=== PATIENT | male | born 1935 | race Caucasian/White ===

== ENCOUNTER 2016-03-02 05:08 | Inpatient (IN) | payer OTHER ==
--- NOTE | 2016-02-22 09:58 | HISTORY & PHYSICAL EXAMINATION ---
DATE OF ADMISSION: 02/22/2016 ATTENDING: Dr. Fagan. DATE OF SURGERY: 03/02/2016 PROCEDURE: Left knee replacement. HISTORY OF PRESENT ILLNESS: The patient is a pleasant 80-year-old male who presents for preop evaluation prior to left knee replacement. he states he is having pain in this knee for several years now, which has gradually worsened, has not gotten to the point it is affecting his daily activities including walking, standing, going up and down steps. He has had previous knee arthroscopy and subchondroplasty by Dr. Collier, has tried cortisone injections x3 without relief. X-rays were obtained which revealed end-stage DJD and after discussing further care would like to proceed with a left knee replacement. PAST MEDICAL HISTORY: 1. Hypertension. 2. Asthma. 3. History of kidney stones. 4. History of prostate cancer. ALLERGIES: No known drug allergies. CURRENT MEDICATIONS: 1. Diltiazem 300 mg p.o. daily. 2. Econazole. 3. Flovent. 4. Losartan/HCTZ 100/25 mg daily. PAST SURGICAL HISTORY: 1. Tonsillectomy. 2. Cholecystectomy. 3. Left knee arthroscopy. FAMILY HISTORY: Noncontributory. SOCIAL HISTORY: The patient is . His resides at [facility], has dementia. He denies a history of smoking or tobacco use. REVIEW OF SYSTEMS: Otherwise negative. Please see HPI for pertinent positives. PHYSICAL EXAMINATION: GENERAL: Pleasant male, in no acute distress, alert and oriented x3. He is 5 feet 10 inches, weighs 234 pounds. VITAL SIGNS: Blood pressure 140/80, pulse 92, BMI is 33.5. HEENT: Normocephalic, atraumatic. CARDIAC: Regular rate and rhythm. No murmurs or gallops appreciated. Resting pulse 92 beats per minute. LUNGS: Clear to auscultation without rales or wheeze bilaterally. ABDOMEN: Soft, nontender. Bowel sounds present. EXTREMITIES: Left lower extremity is neurovascularly intact. Calves are soft and nontender. DP pulse +2. Demonstrates good quad tone. Straight leg raise without lag. No erythema or warmth, has mild effusion. Positive crepitation with motion, range of motion is 0/5/110. Overall has varus alignment. IMAGING: Reviewed of the left knee shows findings consistent with end-stage DJD, has complete loss of medial compartment with varus alignment. He is also status post subchondroplasty of the medial tibial plateau noted, has endstage DJD of the patellofemoral joint. IMPRESSION: 1. Left knee degenerative joint disease. 2. Hypertension. 3. Asthma. 4. History of prostate cancer. PLAN: Further care discussed with patient. At this point in time, has failed conservative measures. Will proceed with a left knee replacement. Will place on aspirin 81 mg p.o. b.i.d. for a month postop, given his living situation at home, would like to discuss with family preservation caseworker for possible rehab placement.
[2016-02-22 10:42] VITALS: BMI 32.0
--- NOTE | 2016-02-22 11:24 | PAT Medication Instructions ---
Service Date Feb 22, 2016. Current Home Medication List Brimonidine Tartrate (Brimonidine Tartrate), 2 DROPS OPL BID Diltiazem Hcl Coated Beads (Cardizem Cd), 300 MG PO QAM Dorzolamide Hcl Oph (Trusopt Oph), 2 DROPS OPL BID Econazole Nitrate (Econazole Nitrate Crm 1% 30 Gm), 1 DOSE TOP UD PRN for PRN Fluocinonide (Fluocinonide), 1 DOSE TOP BID PRN for RASH Fluticasone Propionate Hfa (Flovent Hfa 220MCG Inhaler), 2 PUFFS INH QAM Losartan Potassium & Hydrochlo (Hyzaar), 1 TAB PO QAM Medication Instructions For Your Scheduled Surgery - Hold the following medications the morning of surgery: Losartan Potassium & Hydrochlo (Hyzaar), 1 TAB PO QAM Econazole Nitrate (Econazole Nitrate Crm 1% 30 Gm), 1 DOSE TOP UD PRN for PRN Fluocinonide (Fluocinonide), 1 DOSE TOP BID PRN for RASH - Take the following medications the morning of surgery with a sip of water OTHERWISE NOTHING TO EAT OR DRINK AFTER MIDNIGHT: Dorzolamide Hcl Oph (Trusopt Oph), 2 DROPS OPL BID Brimonidine Tartrate (Brimonidine Tartrate), 2 DROPS OPL BID Diltiazem Hcl Coated Beads (Cardizem Cd), 300 MG PO QAM Fluticasone Propionate Hfa (Flovent Hfa 220MCG Inhaler), 2 PUFFS INH QAM - Take the following medications as scheduled the night before surgery: Dorzolamide Hcl Oph (Trusopt Oph), 2 DROPS OPL BID Brimonidine Tartrate (Brimonidine Tartrate), 2 DROPS OPL BID Fluocinonide (Fluocinonide), 1 DOSE TOP BID PRN for RASH If you have any questions please call us at [phone] (Abigail Stein PA-C ) or [phone] or [phone]
[2016-02-22 12:03] LABS: BASO % 0.3 %; BASO ABS # 0.04 K/uL (0-0.2); COMPLETE YES; HEMATOCRIT 48.7 % (42-52); IG% 1.3 %; LYMPH % 14.1 %; MEAN CELL VOLUME 88.7 fL (80-100); MEAN CORPUSCULAR HEMOGLOBIN 30.1 pg (25-34); MEAN CORPUSCULAR HGB CONC 33.9 g/dl (32-36); MONO % 10.2 %; NEUT % 74.1 %; PLATELET COUNT 373 K/uL (130-400); RED BLOOD COUNT 5.49 M/uL (4.7-6.1); WHITE BLOOD COUNT 12.77 K/uL (4.8-10.8)
--- NOTE | 2016-02-22 12:05 | DIAGNOSTIC IMAGING REPORT ---
CHEST PREADMISSION(PA/LAT) CLINICAL HISTORY: Preoperative evaluation. COMPARISON STUDY: Chest radiograph November 03, 2014 and FINDINGS: Lung volumes are normal. No consolidation is identified to suggest pneumonia. There is no evidence of pulmonary edema. Linear left lower lung opacity favors atelectasis. This is unchanged. There is borderline cardiomegaly. IMPRESSION: 1. No acute cardiopulmonary findings. 2. Borderline cardiomegaly without evidence of pulmonary edema. 3. Linear left lower lung opacity suggestive of atelectasis. Electronically signed by: Josh Shepard M.D. 02/22/2016 12:03 PM Dictated Date/Time: 02/22/2016 12:02 PM
[2016-02-22 12:17] LABS: PARTIAL THROMBOPLASTIN RATIO 0.9; PROTHROMBIN TIME (PATIENT) 10.9 SECONDS (9.0-12.0)
[2016-02-22 12:24] LABS: ESTIMATED AVERAGE GLUCOSE 143 mg/dl; HA1C FLAG Normal (Normal)
[2016-02-22 12:28] LABS: BUN/CREATININE RATIO 21.3 (10-20); CREATININE 1.3 mg/dl (0.60-1.40); POTASSIUM 3.4 mmol/L (3.5-5.1)
[~2016-03-02] VITALS: Ht 182.9 cm; Wt 106.0 kg
[2016-03-02] VITALS (12 sets, daily range): BP systolic 121–178; BP diastolic 75–105; PULSE 59–75; TEMP 36.5–37; O2SAT 91–96; Ht 182.9 cm; Wt 106.0 kg
[~2016-03-02 05:08] MED LIST: DILT300C29 PO; DORZ1SOL OPL; FLUT220A INH; LOSA100T2 PO; SPCCR30 TOP; [UNRECOGNIZED DRUG - CODE] OPL; [UNRECOGNIZED DRUG - CODE] TOP
[2016-03-02] MEDS ORDERED: GABAPENTIN 300 MG CAP PO SCH (06:00)
[2016-03-02] MEDS ORDERED: FAMOTIDINE 20 MG TAB PO SCH (06:00)
[2016-03-02] MEDS ORDERED: CEFAZOLIN 2000 MG/60 ML D5W 60 ML IV SCH (06:00)
[2016-03-02] MEDS ORDERED: METOCLOPRAMIDE HCL 10 MG TAB PO SCH (06:00)
[2016-03-02] MEDS ORDERED: CeleBREX 200 MG CAP PO SCH (06:00)
[2016-03-02] MEDS ORDERED: ROPIVACAINE 5MG/ML 30 ML 150 MG, BUPIVACAINE/EPINEPHR 0.5% MPF 30 ML, KETOROLAC TROMETH... INFIL SCH ×7 (06:00)
[2016-03-02] MEDS ORDERED: LACTATED RINGER'S 1000ML IV SCH (06:00)
[2016-03-02] MEDS ORDERED: ACETAMINOPHEN 500 MG TAB PO SCH (06:00)
[2016-03-02] MEDS ORDERED: DEXAMETHASONE 4 MG TAB PO SCH (06:00)
[2016-03-02] MEDS ORDERED: LACTATED RINGER'S 500 ML IV SCH (06:00)
[2016-03-02] MEDS ORDERED: BUPIVACAINE 0.5 % 5 MG/1 ML PF 10ML VIAL ONE (06:22)
[2016-03-02] MEDS ORDERED: BUPIVACAINE 0.25% 30 ML VIAL ONE (06:23)
[2016-03-02] MEDS ORDERED: MIDAZOLAM HCL 1 MG/ML 2ML VIAL ONE (06:39)
[2016-03-02] MEDS ORDERED: FENTANYL CITRATE INJ 50 MCG/1 ML 2 ML VIAL ONE (06:39)
[2016-03-02] MEDS ORDERED: ORTHO JOINT ANESTHETIC ONE (06:57)
[2016-03-02] MEDS ORDERED: NURSING VERBAL MED ORDER ONE (07:00)
--- NOTE | 2016-03-02 07:13 | History & Physical Bridge Note ---
H&P Re-Evaluation Bridge Note: I have examined the patient, reviewed the History & Physical and in the interval since the performance of the History & Physical I have noted the following changes of clinical significance: No changes noted
[2016-03-02] MEDS: TRANEXAMIC ACID AMP 1,000 MG in NSS 100ML IV SCH ×2 (07:15→07:30)
[2016-03-02] MEDS ORDERED: ATROPINE SULFATE 0.1 MG/ML 5ML SYR IV PRN (07:30)
[2016-03-02] MEDS ORDERED: EpHEDrine SULFATE INJ 50 MG/ML AMP IV PRN (07:30)
[2016-03-02] MEDS ORDERED: FENTANYL CITRATE INJ 50 MCG/1 ML 2 ML VIAL IV PRN (07:30)
[2016-03-02] MEDS ORDERED: ONDANSETRON INJ 2 MG/ML 2 ML VIAL IV PRN ×2 (07:30→09:30)
[2016-03-02] MEDS ORDERED: PROPOFOL IV EMULSION 10 MG/ML 20 ML VIAL IV ONE (08:11)
--- NOTE | 2016-03-02 08:53 | [facility] Post Operative Brief Note ---
Immediate Operative Summary Operative Date Mar 02, 2016. Pre-Operative Diagnosis Left knee degenerative joint disease Post-Operative Diagnosis Left knee degenerative joint disease Procedure(s) Performed Left Total Knee Arthroplasty Surgeon Dr. Gurinder Fagan Metallurgical Engineer Surgeon(s) Gurvinder Edmond PA-C Estimated Blood Loss 10mL Findings severe djd lt knee Specimens Specimen A. Left knee bone and tissue Complication(s) None Disposition Recovery Room / PACU
[2016-03-02] MEDS ORDERED: BACITRACIN 50000 UNIT VIAL IR ONE ×2 (08:57→09:00)
[2016-03-02] MEDS ORDERED: POVIDONE-IODINE OP SOLN 30 ML BTL TOP ONE ×2 (08:57→09:00)
--- NOTE | 2016-03-02 09:11 | OPERATIVE REPORT ---
DATE OF OPERATION: 03/02/2016 PREOPERATIVE DIAGNOSIS: Severe end-stage degenerative joint disease, left knee. POSTOPERATIVE DIAGNOSIS: Severe end-stage degenerative joint disease, left knee. PROCEDURE: Left total knee arthroplasty utilizing Journey II size 8 femur, 7 tibia with a 22 mm x 100 mm stem, 11 poly, 35 patella. SURGEON: Dr. Fagan. MAINTENANCE ELECTRICIAN: CAREN Reid, who was necessary for prepping, draping, retraction, wound closure of deep fascia, subcu and skin as necessary for the case. COMPLICATIONS: None. ESTIMATED BLOOD LOSS: 10 mL TOURNIQUET TIME: 1 hour. HISTORY: The patient presents as a very pleasant 80-year-old white male who had previously undergone a subchondroplasty by surgeon elsewhere, had failed subchondroplasty with collapse of his medial tibial plateau and ongoing pain, he presents for total knee arthroplasty. He has failed all other attempts at conservative management including physical therapy, viscosupplementation and injections. PROCEDURE IN DETAIL: The patient was properly prepped and draped in supine position for total knee arthroplasty after identifying the appropriate surgical site. An anterior midline incision was made through the subcutaneous tissues down to the region of the extensor mechanism. A medial parapatellar incision was subsequently made. Meticulous hemostasis was obtained and performed at all times. The patella having been subluxed lateralward, medial and lateral meniscal remnants were excised. The patellar cut was then initially made and was sized to the appropriate size. After subluxing the tibia forward the appropriate meniscal fragments having been removed the distal femur was then cut first utilizing a Howard and Nephew block. The distal femoral cuts and chamfer cuts were all made under direct visualization and the proximal tibial osteotomy cut was also made utilizing Howard and Nephew blocks and checked with an extramedullary guide. The appropriate trial components on the femur and tibia were placed. Appropriate trial spacers were used to check flexion and extension gaps. With flexion and extension gaps being equal, the components were then subsequently after thorough irrigation and debridement lavage components were then subsequently cemented in the following order: femur, tibia and patella. Exparel was used for intraoperative anesthesia, the medial parapatellar incision was closed utilizing #1 Vicryl, subQ was closed with 2-0 Vicryl, skin was closed with skin clips. A sterile compression dressing was placed. The patient tolerated the procedure well and was taken to recovery room in stable condition. Due to the complex nature of the procedure, the entire surgery was performed with the operational assistance of CAREN Reid. The assistant speech language pathologist, under direct supervision, was involved in the actual performance of all aspects of the surgical procedure including hemostasis, tissue retraction and incision, instrument management, patient positioning, and wound closure. I attest to the content of the Intraoperative Record and any orders documented therein. Any exceptio ns are noted below.
[2016-03-02] MEDS ORDERED: MoRPHine SULFATE 2 MG/ML CARP IV PRN (09:30)
[2016-03-02] MEDS ORDERED: ALUMINUM/MAGNESIUM/SIMETH (MAALOX MAX) 30 ML UDC PO PRN (09:30)
[2016-03-02] MEDS ORDERED: SOD PHOSPHATE/SOD BIPHOSPHATE ENEMA 132 ML BTL PR PRN (09:30)
[2016-03-02] MEDS ORDERED: BISACODYL 10 MG SUPP PR PRN (09:30)
[2016-03-02] MEDS ORDERED: OXYCODONE HCL IR 5 MG TAB (IMMEDIATE RELEASE) PO PRN (09:30)
[2016-03-02] MEDS ORDERED: KETOROLAC TROMETHAMINE 15 MG/ML VIAL IV. PRN (09:30)
--- NOTE | 2016-03-02 09:58 | DIAGNOSTIC IMAGING REPORT ---
LEFT KNEE 1 OR 2 VIEWS ROUTINE CLINICAL HISTORY: Left knee osteoarthritis. Arthroplasty. COMPARISON: MRI of the left knee November 03, 2014. FINDINGS: Alignment of the total left knee arthroplasty is anatomic. There is no fracture or unexpected radiopaque foreign body. Drains are in place. IMPRESSION: Expected findings following total left knee arthroplasty. Electronically signed by: Josh Shepard M.D. 03/02/2016 9:56 AM Dictated Date/Time: 03/02/2016 9:55 AM
--- NOTE | 2016-03-02 10:07 | Anesthesiology Progress Note ---
Anesthesia Post Op Note Date & Time Mar 02, 2016 at 10:06 Vital Signs Pain Intensity: 0 Vital Signs Past 12 Hours Date Time Temp Pulse Resp B/P Pulse Ox O2 Delivery O2 Flow Rate FiO2 03/02/16 09:34 36.2 72 16 151/84 97 Mask 10 03/02/16 06:13 37 72 18 171/105 94 Room Air Notes Mental Status: alert / awake / arousable, participated in evaluation Pt Amnestic to Procedure: Yes Nausea / Vomiting: adequately controlled Pain: adequately controlled Airway Patency, RR, SpO2: stable & adequate BP & HR: stable & adequate Hydration State: stable & adequate Neuraxial Anesthesia: was administered, sensory block is resolving Anesthetic Complications: no major complications apparent
[2016-03-02] MEDS ORDERED: MoRPHine SULFATE 10 MG/ML CARP/VIAL IV PRN (10:15)
[2016-03-02] MEDS ORDERED: MoRPHine SULFATE 4 MG/ML 1 ML CARP\\VIAL IV PRN (10:15)
[2016-03-02] MEDS ORDERED: PNEUMOCOCCAL ADMINISTRATION CHARGE ONE (12:30)
[2016-03-02] MEDS ORDERED: PNEUMOCOCCAL POLYSACCHARIDES 25 MCG/0.5 ML VIAL/SYR IM. ONE (12:30)
[2016-03-02] MEDS: FERROUS GLUCONATE 324 MG TAB PO SCH ×2 (12:49→18:40)
[2016-03-02] MEDS: D5W AND 1/2NSS + 20MEQ KCL 1,000 ML IV SCH ×2 (12:49→21:09)
[2016-03-02] MEDS: CEFAZOLIN IV 2,000 MG in DEXTROSE 5% 50ML 50 ML IV SCH ×2 (14:20→22:18)
[2016-03-02] MEDS: ACETAMINOPHEN 500 MG TAB PO SCH ×2 (14:21→22:18)
[2016-03-02] MEDS: SENNA 8.6 MG TAB PO SCH (21:07)
[2016-03-02] MEDS: DOCUSATE SODIUM 100 MG CAP PO SCH (21:07)
[2016-03-02] MEDS: ASPIRIN 81 MG ECTAB PO SCH (21:07)
[2016-03-02] MEDS: BRIMONIDINE TARTRATE 0.2% 5ML OPL SCH (21:08)
[2016-03-02] MEDS: DORZOLAMIDE HCL 2% OPH SOLN 10 ML BTL OPL SCH (21:08)
[2016-03-02] MEDS: OXYCODONE HCL 10 MG TABCR (OXYCONTIN) PO SCH (21:08)
[2016-03-03 03:48] VITALS: BP 160/96; PULSE 69; TEMP 36.7; O2SAT 93
[2016-03-03] MEDS: ACETAMINOPHEN 500 MG TAB PO SCH ×3 (05:35→21:29)
[2016-03-03 05:45] LABS: HEMATOCRIT 36.1 % (42-52); MEAN CELL VOLUME 88.5 fL (80-100); MEAN CORPUSCULAR HEMOGLOBIN 30.1 pg (25-34); MEAN CORPUSCULAR HGB CONC 34.1 g/dl (32-36); MEAN PLATELET VOLUME 9.6 fL (7.4-10.4); PLATELET COUNT 256 K/uL (130-400); RED BLOOD COUNT 4.08 M/uL (4.7-6.1); WHITE BLOOD COUNT 15.02 K/uL (4.8-10.8)
[2016-03-03 05:58] LABS: PROTHROMBIN TIME (PATIENT) 11.1 SECONDS (9.0-12.0)
[2016-03-03 06:14] LABS: BUN/CREATININE RATIO 17.8 (10-20); CALCIUM 8.4 mg/dl (8.5-10.1); CREATININE 1.3 mg/dl (0.60-1.40)
--- NOTE | 2016-03-03 07:00 | Orthopedic Progress Note ---
Orthopedic Progress Note Date of Service Mar 03, 2016. Subjective Post OP Day: 1 (s/p Left TKA) Reports: feeling well, pain controlled w PO medications, Denies: SOB, calf pain , chest pain, complaints, light headedness, nausea / vomiting Objective calves soft nontender, N/V intact, capillary refill less than 2 sec., dressing C /D/I, A&O x3, toes mobile, hemovac drainage (175cc/ 8 hours) Date Time Temp Pulse Resp B/P Pulse Ox O2 Delivery O2 Flow Rate FiO2 03/03/16 03:48 36.7 69 18 160/96 93 Room Air 03/02/16 23:00 36.6 74 18 129/81 94 Room Air 03/02/16 20:02 36.7 73 16 121/92 95 Room Air 03/02/16 19:15 Room Air 03/02/16 16:05 Room Air 03/02/16 15:04 36.7 70 18 153/84 92 Room Air 03/02/16 14:22 70 148/75 94 03/02/16 13:21 67 16 177/91 96 Nasal Cannula 2.0 03/02/16 12:53 71 159/81 03/02/16 12:20 75 16 178/80 91 Nasal Cannula 2.0 03/02/16 11:18 59 16 152/93 94 Nasal Cannula 2.0 03/02/16 10:50 66 16 144/82 94 Nasal Cannula 2.0 03/02/16 10:20 Nasal Cannula 3.0 03/02/16 10:20 36.6 69 16 153/82 93 Nasal Cannula 3.0 03/02/16 10:20 Nasal Cannula 3.0 03/02/16 10:10 68 10 147/79 94 Nasal Cannula 3 03/02/16 10:09 67 12 95 03/02/16 10:09 67 12 95 03/02/16 10:09 67 12 03/02/16 10:09 67 12 03/02/16 10:08 147/79 03/02/16 10:08 147/79 03/02/16 10:04 68 17 03/02/16 10:04 68 17 94 03/02/16 10:04 68 17 94 03/02/16 10:04 68 17 03/02/16 10:03 146/85 03/02/16 10:03 146/85 03/02/16 10:00 36.5 67 16 149/85 94 Nasal Cannula 3 03/02/16 09:59 72 20 03/02/16 09:59 72 20 03/02/16 09:59 73 20 90 03/02/16 09:59 73 20 90 03/02/16 09:58 149/85 03/02/16 09:58 149/85 03/02/16 09:54 67 10 95 03/02/16 09:54 68 10 03/02/16 09:54 68 10 03/02/16 09:54 67 10 95 03/02/16 09:53 150/82 03/02/16 09:53 150/82 03/02/16 09:49 71 19 03/02/16 09:49 71 19 91 03/02/16 09:49 71 19 91 03/02/16 09:49 71 19 03/02/16 09:48 143/85 03/02/16 09:48 143/85 03/02/16 09:44 73 19 91 03/02/16 09:44 74 19 03/02/16 09:44 73 19 91 03/02/16 09:44 74 19 03/02/16 09:43 147/83 03/02/16 09:43 147/83 03/02/16 09:40 136/79 03/02/16 09:40 136/79 03/02/16 09:39 71 18 96 03/02/16 09:39 69 18 03/02/16 09:39 69 18 03/02/16 09:39 71 18 96 03/02/16 09:34 74 19 96 03/02/16 09:34 74 19 96 03/02/16 09:34 74 19 03/02/16 09:34 74 19 03/02/16 09:34 36.2 72 16 151/84 97 Mask 10 Laboratory Results 24 Hours: Test 03/03/16 05:19 Hematocrit 36.1 % Hemoglobin 12.3 g/dL Prothromb Time International Ratio 1.0 Prothrombin Time 11.1 SECONDS Assessment & Plan Assessment: POD #1 s/p Left TKA -PT/OT -will discuss with SS poss HSNVR -DVT proph with JADA/SCD/ASA 1. Hypertension. 2. Asthma. 3. History of kidney stones. 4. History of prostate cancer. Discharge Planning Discharge Planning: uncertain DVT Prophylaxis: TEDs, SCDs, ASA Therapy: Physical Therapy
[2016-03-03 07:49] VITALS: BP 169/97; PULSE 70; TEMP 37; O2SAT 93
[2016-03-03] MEDS: DILTIAZEM HCL 300 MG CAPCR PO SCH (07:56)
[2016-03-03] MEDS: LOSARTAN/HCTZ 50-12.5 EA TAB PO SCH (07:56)
[2016-03-03] MEDS: PANTOprazole SOD 40 MG TAB PO SCH (08:53)
[2016-03-03] MEDS: ASPIRIN 81 MG ECTAB PO SCH ×2 (08:53→21:27)
[2016-03-03] MEDS: D5W AND 1/2NSS + 20MEQ KCL 1,000 ML IV SCH (08:53)
[2016-03-03] MEDS: DOCUSATE SODIUM 100 MG CAP PO SCH ×2 (08:54→21:27)
[2016-03-03] MEDS: MULTIVITAMIN TAB PO SCH (08:54)
[2016-03-03] MEDS: BRIMONIDINE TARTRATE 0.2% 5ML OPL SCH ×2 (08:54→21:28)
[2016-03-03] MEDS: FERROUS GLUCONATE 324 MG TAB PO SCH ×3 (08:54→18:02)
[2016-03-03] MEDS: FLUTICASONE HFA 220 MCG INHALER INH SCH (08:55)
[2016-03-03] MEDS: DORZOLAMIDE HCL 2% OPH SOLN 10 ML BTL OPL SCH ×2 (08:55→21:28)
[2016-03-03] MEDS: OXYCODONE HCL 10 MG TABCR (OXYCONTIN) PO SCH ×2 (09:03→21:28)
[2016-03-03 10:55] VITALS: BP 175/93; PULSE 79; TEMP 36.7; O2SAT 94
--- NOTE | 2016-03-03 10:58 | Anesthesiology Progress Note ---
Anesthesia Post Op Note Date & Time Mar 03, 2016 at 10:58 Vital Signs Vital Signs Past 12 Hours Date Time Temp Pulse Resp B/P Pulse Ox O2 Delivery O2 Flow Rate FiO2 03/03/16 10:55 36.7 79 16 175/93 94 Room Air 03/03/16 07:49 37.0 70 16 169/97 93 Room Air 03/03/16 07:47 Room Air 03/03/16 03:48 36.7 69 18 160/96 93 Room Air 03/02/16 23:00 36.6 74 18 129/81 94 Room Air Notes Mental Status: alert / awake / arousable, participated in evaluation Pt Amnestic to Procedure: Yes Nausea / Vomiting: adequately controlled Pain: adequately controlled Airway Patency, RR, SpO2: stable & adequate BP & HR: stable & adequate Hydration State: stable & adequate Neuraxial Anesthesia: was administered, sensory block resolved Anesthetic Complications: no major complications apparent
[2016-03-03 12:06] VITALS: BP 156/81; PULSE 71
[2016-03-03 15:21] VITALS: BP 142/86; PULSE 63; TEMP 36.6; O2SAT 96
[2016-03-03] MEDS: SENNA 8.6 MG TAB PO SCH (21:26)
[2016-03-03] MEDS: CeleBREX 200 MG CAP PO SCH (21:28)
[2016-03-03 23:25] VITALS: BP 178/91; PULSE 59; TEMP 36.5; O2SAT 93
[2016-03-04 06:58] VITALS: BP 176/96; PULSE 74; TEMP 36.6; O2SAT 92
--- NOTE | 2016-03-04 07:17 | Orthopedic Progress Note ---
Orthopedic Progress Note Date of Service Mar 04, 2016. Subjective Post OP Day: 2 Reports: feeling well, pain controlled w PO medications, Denies: SOB, calf pain , chest pain, complaints, light headedness, nausea / vomiting Objective calves soft nontender, N/V intact, capillary refill less than 2 sec., incision C /D/I, A&O x3, toes mobile Date Time Temp Pulse Resp B/P Pulse Ox O2 Delivery O2 Flow Rate FiO2 03/04/16 06:58 36.6 74 18 176/96 92 Room Air 03/04/16 00:00 Room Air 03/03/16 23:25 36.5 59 18 178/91 93 03/03/16 16:30 Room Air 03/03/16 15:21 36.6 63 16 142/86 96 Room Air 03/03/16 12:06 71 156/81 03/03/16 10:55 36.7 79 16 175/93 94 Room Air 03/03/16 07:49 37.0 70 16 169/97 93 Room Air 03/03/16 07:47 Room Air 03/03/16 07:45 Room Air Assessment & Plan Assessment: POD #2 s/p Left TKA -PT/OT -will discuss with poss HSNVR -DVT proph with JADA/SCD/ASA 1. Hypertension. 2. Asthma. 3. History of kidney stones. 4. History of prostate cancer. Plan: Patient discussed with SS poss Rehab placement, he lives alone, his resides at [facility]. Pt does not feel he can return home alone. awaiting authorization Discharge Planning Discharge Planning: uncertain DVT Prophylaxis: TEDs, SCDs, ASA Therapy: Physical Therapy
[2016-03-04] MEDS: MULTIVITAMIN TAB PO SCH (07:34)
[2016-03-04] MEDS: FERROUS GLUCONATE 324 MG TAB PO SCH ×3 (07:34→17:41)
[2016-03-04] MEDS: DOCUSATE SODIUM 100 MG CAP PO SCH ×2 (07:34→21:47)
[2016-03-04] MEDS: ASPIRIN 81 MG ECTAB PO SCH ×2 (07:34→21:48)
[2016-03-04] MEDS: BRIMONIDINE TARTRATE 0.2% 5ML OPL SCH ×2 (07:35→21:38)
[2016-03-04] MEDS: DILTIAZEM HCL 300 MG CAPCR PO SCH (07:35)
[2016-03-04] MEDS: LOSARTAN/HCTZ 50-12.5 EA TAB PO SCH (07:35)
[2016-03-04] MEDS: PANTOprazole SOD 40 MG TAB PO SCH (07:35)
[2016-03-04] MEDS: FLUTICASONE HFA 220 MCG INHALER INH SCH (07:35)
[2016-03-04] MEDS: DORZOLAMIDE HCL 2% OPH SOLN 10 ML BTL OPL SCH ×2 (07:36→21:38)
[2016-03-04] MEDS: ACETAMINOPHEN 500 MG TAB PO SCH ×3 (07:36→21:49)
[2016-03-04] MEDS: CeleBREX 200 MG CAP PO SCH ×2 (07:37→21:47)
[2016-03-04] MEDS: OXYCODONE HCL 10 MG TABCR (OXYCONTIN) PO SCH ×2 (07:39→21:48)
[2016-03-04 10:00] VITALS: BP 147/83; PULSE 59
[2016-03-04 16:06] VITALS: BP 136/75; PULSE 49; TEMP 37.3; O2SAT 95
[2016-03-04] MEDS: MAGNESIUM HYDROXIDE SUSP 30 ML UDC PO PRN (17:45)
[2016-03-04] MEDS: SENNA 8.6 MG TAB PO SCH (21:48)
[2016-03-04 22:55] VITALS: BP 174/84; PULSE 68; TEMP 36.7; O2SAT 94
[2016-03-05 00:45] VITALS: BP 165/75
[2016-03-05] MEDS: ACETAMINOPHEN 500 MG TAB PO SCH (06:00)
[2016-03-05 07:00] VITALS: BP 156/98; PULSE 67; TEMP 36.6; O2SAT 92
[2016-03-05] MEDS: MAGNESIUM HYDROXIDE SUSP 30 ML UDC PO PRN (07:58)
[2016-03-05] MEDS: DILTIAZEM HCL 300 MG CAPCR PO SCH (07:58)
[2016-03-05] MEDS: LOSARTAN/HCTZ 50-12.5 EA TAB PO SCH (07:58)
[2016-03-05] MEDS: DOCUSATE SODIUM 100 MG CAP PO SCH (09:00)
[2016-03-05] MEDS: CeleBREX 200 MG CAP PO SCH (09:41)
[2016-03-05] MEDS: ASPIRIN 81 MG ECTAB PO SCH (09:41)
[2016-03-05] MEDS: FERROUS GLUCONATE 324 MG TAB PO SCH ×2 (09:41→12:30)
[2016-03-05] MEDS: PANTOprazole SOD 40 MG TAB PO SCH (09:41)
[2016-03-05] MEDS: MULTIVITAMIN TAB PO SCH (09:41)
[2016-03-05] MEDS: OXYCODONE HCL 10 MG TABCR (OXYCONTIN) PO SCH (09:42)
[2016-03-05] MEDS: BRIMONIDINE TARTRATE 0.2% 5ML OPL SCH (09:42)
[2016-03-05] MEDS: FLUTICASONE HFA 220 MCG INHALER INH SCH (09:42)
[2016-03-05] MEDS: DORZOLAMIDE HCL 2% OPH SOLN 10 ML BTL OPL SCH (09:42)
--- NOTE | 2016-03-05 10:17 | Orthopedic Progress Note ---
Orthopedic Progress Note Date of Service Mar 05, 2016. Subjective Post OP Day: 3 Reports: feeling well Objective N/V intact, dressing C/D/I, toes mobile Date Time Temp Pulse Resp B/P Pulse Ox O2 Delivery O2 Flow Rate FiO2 03/05/16 08:00 Room Air 03/05/16 07:00 36.6 67 16 156/98 92 Room Air 03/05/16 00:45 165/75 03/05/16 00:45 Room Air 03/04/16 22:55 36.7 68 18 174/84 94 Room Air 03/04/16 16:06 37.3 49 18 136/75 95 Room Air 03/04/16 15:45 Room Air Assessment & Plan Assessment: POD #3 s/p Left TKA -PT/OT -DVT proph with JADA/SCD/ASA 1. Hypertension. 2. Asthma. 3. History of kidney stones. 4. History of prostate cancer. Plan: 1. Med management 2. DVT prophylaxis- ASA, TEDs, SCDs 3. PT/OT 4. D/C planning- home w/HH Discharge Planning Discharge Planning: uncertain DVT Prophylaxis: TEDs, SCDs, ASA Therapy: Physical Therapy
[2016-03-05] MEDS ORDERED: ACET-1138 PO (10:20)
[2016-03-05] MEDS ORDERED: CLB200 PO (10:20)
[2016-03-05] MEDS ORDERED: RXC5 PO (10:20)
[2016-03-05] MEDS ORDERED: ASPEC81 PO (10:20)
[2016-03-05] MEDS ORDERED: ONDA8TAB12 PO (10:20)
[2016-03-05] MEDS ORDERED: OXYSR10 PO (10:20)
--- NOTE | 2016-03-05 10:21 | Discharge Instructions ---
Discharge Instructions Admission Reason for Admission: Left Knee Osteoarthritis Discharge Discharge Diagnosis / Problem: Left knee arthritis Discharge Goals Goal(s): Decrease discomfort, Improve function Activity Recommendations Activity Limitations: as noted below Weightbearing Status: Left weightbearing (as tolerated) . Instructions / Follow-Up Instructions / Follow-Up ACTIVITY RECOMMENDATIONS: SELF CARE INSTRUCTIONS AFTER TOTAL KNEE REPLACEMENT A. You may need to continue a physical therapy program after discharge from the hospital. There are several options available to you. Your doctor will assist you in selecting the best one for you. 1. An out-patient facility 2 to 3 times a week for therapy or home therapy. 2. Continue working on all exercises taught to you in the hospital. Your goals should be to increase bending of your knee to 90 degrees and beyond and to fully straighten your knee. B. You may progress at your own pace from walking with a walker or crutches to a cane; then to no assistive devices. C. Make walking a part of your daily routine. Be up as much as comfortable with rest periods throughout the day. Rest with leg elevation is very important. Use the ice wrap frequently for the first 3-4 weeks. D. There are no restrictions on activities. You may ride in a car, shop, participate in oracle fusion developer and all social activities. E. Wear the long elastic stockings (JADA hose) 20 hours a day for 2 weeks after surgery. They can be removed several times a day for laundering and for a bath. F. You may shower, no tub baths until cleared by your doctor. SPECIAL CARE INSTRUCTIONS: VERY IMPORTANT TO READ AND REVIEW A. There are a few signs you need to watch for after you are home. Call [facility] if you notice any of the followin. Increased severe knee pain. Some pain is expected especially when you exercise. 2. Increased swelling in your leg or knee; pain or swelling of the calf muscle in either lower leg. 3. Any fluid drainage from the incision. 4. Shortness of breath or chest pain. B. Please call [facility] at if you have any concerns or questions about your operation or recovery. The doctor or his nurse will return your call promptly. C. You must take antibiotics before dental work, bladder, bowel or other surgery. Your doctor will provide you with a permanent care to carry describing this precaution. IMPORTANT: * REMEMBER TO TAKE ASPIRIN, 81 MG, TWICE DAILY FOR 4 WEEKS UNLESS OTHERWISE DIRECTED. THIS IS YOUR BLOOD THINNER. * HIGH RISK PATIENTS MAY BE PRESCRIBED A STRONGER BLOOD THINNER. THIS WILL BE PROVIDED AT DISCHARGE. * CALL IF INCREASED PAIN, REDNESS, DRAINAGE OR FEVER GREATER THAT 101. * WEAR JADA HOSE 20 HOURS PER DAY FOR 2 WEEKS. FOLLOW UP VISIT: If appointment is not already scheduled: Please call [facility] to make a follow-up appointment for 2 weeks after your surgery at . Current Hospital Diet Patient's current hospital diet: Regular Diet Discharge Diet Recommended Diet: Regular Diet Procedures Procedures Performed: Left Total Knee Arthroplasty Pending Studies Studies pending at discharge: no Laboratory Results Hemoglobin A1c Test 02/22/16 11:24 Range/Units Estimated Average Glucose 143 mg/dl Hemoglobin A1c 6.6 H 4.5-5.6 % Lipid Panel Test 12/10/15 10:11 Range/Units Triglycerides Level 227 H 0-150 mg/dl Cholesterol Level 196 0-200 mg/dl HDL Cholesterol 47 mg/dl Cholesterol/HDL Ratio 4.2 LDL Cholesterol, Calculated 104 mg/dl Medical Emergencies . Who to Call and When: Medical Emergencies: If at any time you feel your situation is an emergency, please call 911 immediately. . Non-Emergent Contact Non-Emergency issues call your: Surgeon Call Non-Emergent contact if: temperature is above 101.5, your pain is not controlled, wound has increased drainage, wound has increased redness . "Provider Documentation" section prepared by Wayne Madden PA-C. VTE Core Measure Inpt VTE Proph given/why not?: Other Anticoagulation (ASA 81mg bid), T.E.D. Stockings, SCD's
[2016-03-05 10:52] VITALS: BP 156/98; PULSE 67; TEMP 36.6; O2SAT 92
--- NOTE | 2016-03-06 11:10 | Discharge Summary ---
Orthopedic Discharge Summary Admission Date/Reason Mar 02, 2016 at 07:00 Left Knee Osteoarthritis. Discharge Date/Disposition Mar 05, 2016 Home with services Diagnosis Principal Diagnosis: Left TKA Procedure(s) Performed Left TKA Consultations NONE Medication Reconciliation New Medications: Ondansetron Hcl (Zofran) 8 Mg Tab 8 MG PO Q8 PRN for Nausea or Vomiting, #20 TAB Acetaminophen (Tylenol Extra Strength) 500 Mg Tab 1000 MG PO Q8H for 14 Days, TAB Aspirin (Aspirin EC Low Dose) 81 Mg Ectab 81 MG PO BID for 28 Days Celecoxib (Celebrex) 200 Mg Cap 200 MG PO BID, #60 CAP Oxycodone HCl (Oxycontin) 10 Mg Tabcr 10 MG PO Q12, #20 Oxycodone HCl (Oxycodone HCl) 5 Mg Tab 5-10 MG PO Q4-6 PRN for Pain, #60 TAB Continued Medications: Brimonidine Tartrate (Brimonidine Tartrate) 75 Drops/5 Ml Soln 2 DROPS OPL BID Diltiazem Hcl Coated Beads (Cardizem Cd) 300 Mg Cap 300 MG PO QAM, CAP Dorzolamide Hcl Oph (Trusopt Oph) Soln 2 DROPS OPL BID Econazole Nitrate (Econazole Nitrate Crm 1% 30 Gm) 90 Appln/30 Gm Cr 1 DOSE TOP UD PRN for PRN Fluocinonide (Fluocinonide) 45 Appln/15 Gm Oint 1 DOSE TOP BID PRN for RASH Fluticasone Propionate Hfa (Flovent Hfa 220MCG Inhaler) 220 Mcg/ Aer 2 PUFFS INH QAM, INH Losartan Potassium & Hydrochlo (Hyzaar) 1 Tab Tab 1 TAB PO QAM for 30 Days, #30 TAB 5 Refills DOSAGE 100-25MG Admission Physical Exam As per Admitting History & Physical. Hospital Course Patient was a same day admission after undergoing a successful left TKA. he tolerated the procedure well. Post-operatively, his activity was progressed and well tolerated. Please refer to daily progress notes and PT notes for complete details. After exam on 03/05/16, patient felt to be stable for discharge home with home PT. Patient will f/u in the office in 2 weeks for further evaluation including x-rays and incision check, sooner if having any issues or concerns. Below are pertinent labs/studies during their hospital stay: Last Vital Signs Documentation Date Time Temp Pulse Resp B/P Pulse Ox O2 Delivery O2 Flow Rate FiO2 03/05/16 10:52 36.6 67 16 92 Room Air 03/05/16 07:00 156/98 03/02/16 13:21 2.0 Last Resulted CBC 03/03/16 05:19 Last Resulted BMP 03/03/16 05:19 Discharge Instructions ACTIVITY RECOMMENDATIONS: SELF CARE INSTRUCTIONS AFTER TOTAL KNEE REPLACEMENT A. You may need to continue a physical therapy program after discharge from the hospital. There are several options available to you. Your doctor will assist you in selecting the best one for you. 1. An out-patient facility 2 to 3 times a week for therapy or home therapy. 2. Continue working on all exercises taught to you in the hospital. Your goals should be to increase bending of your knee to 90 degrees and beyond and to fully straighten your knee. B. You may progress at your own pace from walking with a walker or crutches to a cane; then to no assistive devices. C. Make walking a part of your daily routine. Be up as much as comfortable with rest periods throughout the day. Rest with leg elevation is very important. Use the ice wrap frequently for the first 3-4 weeks. D. There are no restrictions on activities. You may ride in a car, shop, participate in qa specialist and all social activities. E. Wear the long elastic stockings (JADA hose) 20 hours a day for 2 weeks after surgery. They can be removed several times a day for laundering and for a bath. F. You may shower, no tub baths until cleared by your doctor. SPECIAL CARE INSTRUCTIONS: VERY IMPORTANT TO READ AND REVIEW A. There are a few signs you need to watch for after you are home. Call [facility] if you notice any of the followin. Increased severe knee pain. Some pain is expected especially when you exercise. 2. Increased swelling in your leg or knee; pain or swelling of the calf muscle in either lower leg. 3. Any fluid drainage from the incision. 4. Shortness of breath or chest pain. B. Please call [facility] at if you have any concerns or questions about your operation or recovery. The doctor or his nurse will return your call promptly. C. You must take antibiotics before dental work, bladder, bowel or other surgery. Your doctor will provide you with a permanent care to carry describing this precaution. IMPORTANT: * REMEMBER TO TAKE ASPIRIN, 81 MG, TWICE DAILY FOR 4 WEEKS UNLESS OTHERWISE DIRECTED. THIS IS YOUR BLOOD THINNER. * HIGH RISK PATIENTS MAY BE PRESCRIBED A STRONGER BLOOD THINNER. THIS WILL BE PROVIDED AT DISCHARGE. * CALL IF INCREASED PAIN, REDNESS, DRAINAGE OR FEVER GREATER THAT 101. * WEAR JADA HOSE 20 HOURS PER DAY FOR 2 WEEKS. * YOU MAY HAVE A LARGE BAND-AID LIKE DRESSING (SILVERON). THIS WILL REMAIN ON YOUR INCISION FOR 7 DAYS, THEN CAN BE REMOVED. IF INCISION IS LEAKING THROUGH DRESSING, CALL THE OFFICE . FOLLOW UP VISIT: If appointment is not already scheduled: Please call [facility] to make a follow-up appointment for 2 weeks after your surgery at .
== END 2016-03-05 13:23 | disposition home health service (06) | DRG 470 ==
LOC: ENRESERVDT → ENRESERVTM → C.ACU 05:08 → C.3E 07:00
PROVIDERS: ADMIT Orthopaedic Surgery; ATTEND Orthopaedic Surgery
PROC: 0SRD0J9 Replacement of Left Knee Joint with Synthetic Substitute, Cemented, Open Approach (ICD-10-PCS; principal; 2016-03-02 07:15)
DX: M17.12 Unilateral primary osteoarthritis, left knee (principal); J45.909 Unspecified asthma, uncomplicated; F03.90 Unspecified dementia, unspecified severity, without behavioral disturbance, psychotic disturbance, mood disturbance, and anxiety; I10 Essential (primary) hypertension; E66.9 Obesity, unspecified; M06.9 Rheumatoid arthritis, unspecified; Z68.31 Body mass index [BMI] 31.0-31.9, adult; Z85.46 Personal history of malignant neoplasm of prostate; Z87.442 Personal history of urinary calculi; Z79.899 Other long term (current) drug therapy

== ENCOUNTER → 2016-03-14 | Outpatient (CLI) | payer OTHER ==
[~2016-03-14] MED LIST changes: +ACET-1138 PO; +ASPEC81 PO; +CLB200 PO; +ONDA8TAB12 PO; +OXYSR10 PO; +RXC5 PO
--- NOTE | 2016-03-14 16:16 | DIAGNOSTIC IMAGING REPORT ---
ULTRASOUND LEFT VENOUS DOPP LOWER EXT UNILAT CLINICAL HISTORY: Left leg swelling. History of left knee arthroplasty. COMPARISON STUDY: No previous studies for comparison. FINDINGS: Real-time and color flow Doppler imaging were performed. Flow was seen within the femoral, popliteal and calf veins with no intraluminal thrombus demonstrated. The saphenous vein is patent. IMPRESSION: No evidence of left lower extremity DVT. Electronically signed by: Tam Balderas M.D. 03/14/2016 4:15 PM Dictated Date/Time: 03/14/2016 4:15 PM
--- NOTE | 2016-03-18 11:36 | CODING QUERY MEDICAL NECESSITY ---
SUPPORTING DIAGNOSIS NEEDED A supporting diagnosis is required for the test/procedure performed on this patient in order for us to be reimbursed by the patient's insurance. Please provide a supporting diagnosis for the following test/procedure listed below next to the test name along with your signature. *If there is no additional diagnosis for this patient that would support the following test/procedure please document that below next to the test/procedure. Test(s)/Procedure(s) that require a supporting diagnosis: DOS 03/14 * LLE Doppler DIAGNOSIS: Provider Signature: Date: Thank you Chelsea Roberson Health Information Management Once completed, please kindly fax back to [phone] For questions please call [phone]
== END | disposition home or self-care (01) ==
LOC: C.ULTR 15:40
PROVIDERS: ATTEND Orthopaedic Surgery
DX: Z47.1 Aftercare following joint replacement surgery (principal); Z96.652 Presence of left artificial knee joint

== ENCOUNTER → 2016-12-07 | Outpatient (CLI) | payer OTHER ==
[~2016-12-07] MED LIST changes: -ONDA8TAB12 PO
[2016-12-07 09:29] LABS: BASO % 1.3 %; BASO ABS # 0.11 K/uL (0-0.2); COMPLETE YES; EOS % 3.9 %; HEMATOCRIT 44.2 % (42-52); IG% 0.2 %; LYMPH % 26.2 %; LYMPH ABS # 2.27 K/uL (1.2-3.4); MEAN CELL VOLUME 88.6 fL (80-100); MEAN CORPUSCULAR HEMOGLOBIN 29.5 pg (25-34); MEAN CORPUSCULAR HGB CONC 33.3 g/dl (32-36); MEAN PLATELET VOLUME 9.8 fL (7.4-10.4); MONO % 7.6 %; NEUT % 60.8 %; PLATELET COUNT 302 K/uL (130-400); RED BLOOD COUNT 4.99 M/uL (4.7-6.1); WHITE BLOOD COUNT 8.67 K/uL (4.8-10.8)
[2016-12-07 09:53] LABS: ALT/SGPT 32 U/L (12-78); AST/SGOT 15 U/L (15-37); BLOOD UREA NITROGEN 16 mg/dl (7-18); BUN/CREATININE RATIO 12.7 (10-20); CALCIUM 8.8 mg/dl (8.5-10.1); CARBON DIOXIDE 30 mmol/L (21-32); CHLORIDE 102 mmol/L (98-107); CREATININE 1.23 mg/dl (0.60-1.40); GLUCOSE 143 mg/dl (70-99); POTASSIUM 3.1 mmol/L (3.5-5.1); SODIUM 140 mmol/L (136-145)
[2016-12-07 10:00] LABS: ALKALINE PHOSPHATASE 90 U/L (45-117); CHOLESTEROL 180 mg/dl (0-200); CHOLESTEROL/HDL RATIO 4.5; HDL CHOLESTEROL 40 mg/dl; LDL CHOLESTEROL CALCULATED 93 mg/dl; TRIGLYCERIDES 237 mg/dl (0-150); VERY LOW DENSITY LIPOPROT CALC 47 mg/dl
== END | disposition home or self-care (01) ==
LOC: C.LAB1850 08:25
PROVIDERS: ATTEND Internal Medicine Pulmonary Disease
DX: J45.909 Unspecified asthma, uncomplicated (principal); I10 Essential (primary) hypertension; E78.5 Hyperlipidemia, unspecified; C61 Malignant neoplasm of prostate

== ENCOUNTER → 2017-03-14 | Day surgery (SDC) | payer OTHER ==
[2017-03-09 11:52] VITALS: Ht 182.9 cm; Wt 104.5 kg
[~2017-03-14] VITALS: Ht 182.9 cm; Wt 104.5 kg
[~2017-03-14] MED LIST changes: -ACET-1138 PO; -ASPEC81 PO; +BRIM0.15 OPL; +BRIMONIDINE TART 0.2% OP SOLN PER DROP CHARGE OPL ONE; +BRIMONIDINE TARTRATE 0.2% 5ML OP SCH; +BRIMONIDINE TARTRATE 0.2% 5ML OPL SCH; -CLB200 PO; +DILT-117 PO; -DILT300C29 PO; -DORZ1SOL OPL; +DORZ2SOL17 OPL; -FLUT220A INH; +FLVHFA110 INH; +HYZ/10015 PO; -LOSA100T2 PO; -OXYSR10 PO; +PILOCARPINE HCL 2% OP SOLN 15 ML BTL ONE; +PILOCARPINE HCL 2% OP SOLN 15 ML BTL OPL SCH; +PROPARACAINE 0.5% OP SOLN PER DROP CHARGE OPL SCH; +PrednisoLONE ACET 1% OP SUSP 5 ML BTL OP SCH; +PrednisoLONE ACET 1% OP SUSP 5 ML BTL OPL ONE; -RXC5 PO; -[UNRECOGNIZED DRUG - CODE] OPL
[2017-03-14 11:44] VITALS: PULSE 80; O2SAT 94
--- NOTE | 2017-03-14 11:46 | Discharge Instructions-SurgCtr ---
Discharge Instructions Date of Service Mar 14, 2017. Visit Reason for Visit: Glaucoma Left Eye Discharge Discharge Diagnosis / Problem: Glaucoma Discharge Goals Goal(s): Improve disease control Activity Recommendations Activity Limitations: per Instructions/Follow-up section Anesthesia . Post Anesthesia Instructions: If you have had General Anesthesia or IV Sedation: * Do not drive today. * Resume driving when surgeon permits. * Do not make important decisions or sign legal documents today. * Call surgeon for: 1. Temperature elevations greater than 101 degrees F. 2. Uncontrollable pain. 3. Excessive bleeding. 4. Persistent nausea and vomiting. 5. Medication intolerance (nausea, vomiting or rash). * For nausea and vomiting use only clear liquids such as: tea, soda, bouillon until nausea subsides, then gradually increase diet as tolerated. * If you have any concerns or questions, call your surgeon's office. If physician is unavailable and it is an emergency, call 911 or go to the nearest emergency room. . Instructions / Follow-Up Instructions / Follow-Up ACTIVITY RECOMMENDATIONS: * No limitations RETURN TO SCHOOL/WORK: * No limitations DIET: * No limitations MEDICATIONS: Resume previous medications unless instructed otherwise by your surgeon. * Please use Prednisolone acetate drops prescription given to you at your office appointment as follows: 1 drop in effected eye 4 times a day for 5 days. * Continue all glaucoma drops as usual with no interruption to either eye. SPECIAL CARE INSTRUCTIONS: Call your doctor at with any concerns or problems. FOLLOW UP VISIT: Follow-up with Dr Grover in 1 hour. Diet Recommendations Home Diet: resume previous diet Pending Studies Studies pending at discharge: no Medical Emergencies . Who to Call and When: Medical Emergencies: If at any time you feel your situation is an emergency, please call 911 immediately. . Non-Emergent Contact Non-Emergency issues call your: [facility] . . "Provider Documentation" section prepared by Santi Grover. .
[2017-03-14 11:47] VITALS: BP 168/124
--- NOTE | 2017-03-14 11:47 | [facility] Operative Report ---
Operative Report Date of Service Mar 14, 2017. Operative Report Diagnosis: Open angle glaucoma, left eye Procedure: SLT superior 180 degrees, left eye 1.3 mj, 62 spots Complications: none I attest to the content of the Intraoperative Record and any orders documented therein. Any exceptions are noted below.
== END | disposition home or self-care (01) ==
LOC: X.SURG 10:27
PROVIDERS: ATTEND Ophthalmology
DX: H40.10X0 Unspecified open-angle glaucoma, stage unspecified (principal)

== ENCOUNTER → 2017-06-08 | Outpatient (CLI) | payer OTHER ==
[~2017-06-08] MED LIST changes: -BRIMONIDINE TART 0.2% OP SOLN PER DROP CHARGE OPL ONE; -BRIMONIDINE TARTRATE 0.2% 5ML OP SCH; -BRIMONIDINE TARTRATE 0.2% 5ML OPL SCH; -PILOCARPINE HCL 2% OP SOLN 15 ML BTL ONE; -PILOCARPINE HCL 2% OP SOLN 15 ML BTL OPL SCH; -PROPARACAINE 0.5% OP SOLN PER DROP CHARGE OPL SCH; -PrednisoLONE ACET 1% OP SUSP 5 ML BTL OP SCH; -PrednisoLONE ACET 1% OP SUSP 5 ML BTL OPL ONE
[2017-06-08 09:53] LABS: ALBUMIN 3.8 gm/dl (3.4-5.0); ALT/SGPT 46 U/L (12-78); AST/SGOT 26 U/L (15-37); BLOOD UREA NITROGEN 15 mg/dl (7-18); CARBON DIOXIDE 29 mmol/L (21-32); CREATININE 1.31 mg/dl (0.60-1.40); GLUCOSE 149 mg/dl (70-99); POTASSIUM 3.5 mmol/L (3.5-5.1); SODIUM 139 mmol/L (136-145); TOTAL PROTEIN 7.3 gm/dl (6.4-8.2)
[2017-06-08 10:00] LABS: ALKALINE PHOSPHATASE 83 U/L (45-117)
[2017-06-08 10:08] LABS: CALCIUM 9.4 mg/dl (8.5-10.1)
== END | disposition home or self-care (01) ==
LOC: C.LAB1850 08:35
PROVIDERS: ATTEND Internal Medicine Pulmonary Disease
DX: J45.909 Unspecified asthma, uncomplicated (principal); I10 Essential (primary) hypertension; J30.9 Allergic rhinitis, unspecified; C61 Malignant neoplasm of prostate; E87.6 Hypokalemia

== ENCOUNTER 2022-05-20 16:56 | Inpatient (IN) ==
--- NOTE | 2022-05-20 17:14 | Emergency Department Note ---
Impression & Plan Acute renal failure ADMIT ED Provider Note HPI: The patient is an 86-year-old gentleman who presents emergency department with chief complaint of difficulty with urination for the past 3 days. Patient states he has been unable to have a sensation that he is completely voiding his bladder during this time. Patient was seen this morning by his PCP and ultimately recommended to come to the ED to be assessed. On arrival the patient is hemodynamically stable, states he does have some suprapubic discomfort but otherwise denies any abdominal pain or flank pain. Patient states he does have a history of prostate cancer that he has since completed treatment for. ROS: - Per HPI *Outpatient medications and allergy history reviewed. *Pertinent external medical records reviewed. PE: General: Alert HEENT: Normocephalic, trachea midline Eyes: Extraocular eye movement is intact, no scleral erythema Pulmonary: Clear to auscultation bilaterally, no wheezing Cardio: Regular rate and rhythm GI: Abdomen is soft to palpation : Moderate suprapubic tenderness to palpation MSK: No evidence of trauma or malformation of the extremities, no edema Skin: No evidence of rash Neuro: Alert, no focal deficits Psychiatric: Cooperative vehicle monitor technician: (As interpreted by myself): - An order was placed for continuous cardiac monitoring - Patient was noted to be in sinus rhythm with rate of 70 Interventions provided in ED: -Gross catheter placed Differential Diagnosis: Urinary tract obstruction, acute renal failure, metabolic acidosis, urinary tract infection, hemorrhagic cystitis, bladder mass, amongst other potential pathologies. Medical Decision Making: Patient presented to the emergency department with a chief complaint of difficulty with urination over the past several days. On arrival here to the ED the patient is in no acute distress. He does have suprapubic tenderness on my exam. Bladder scan shows greater than 1500 cc, Gross catheter was placed with approximately 1800 cc of dark yellow urine drained initially. Lab work was ob tained that shows evidence of acute renal failure with creatinine of 9.78. Patient's lab work otherwise shows a leukocytosis of 13.6, mild anemia at 11.9, platelet count is within normal limits, potassium is slightly low at 3.3, urinalysis shows evidence of possible infection with pyuria greater than 30, leukocyte esterase 3+, nitrate negative, 2+ blood. Patient will be started on ceftriaxone and blood cultures ordered. Following placement of Gross catheter CT imaging of the abdomen pelvis shows evidence of bilateral hydronephrosis and changes consistent with chronic outlet obstruction. On my reassessment patient is drained an additional 600cc of urine. He states he is feeling improved on my reassessment, he was explained all of the above findings as well as his son at the bedside. I recommended admission given findings on lab work of acute renal failure. Patient is in agreement. Case was then discussed with the on-call hospitalist, Dr. Tidwell, who accepted the patient for further management Consultants: Dr. Tidwell, Hospital Disposition discussion held by myself with: Patient and son at the bedside Diagnosis: 1. Acute renal failure 2. Urinary outlet obstruction, acute on chronic 3. Urinary tract infection, acute 4. Leukocytosis, acute Disposition: Admission Gurvinder Earl, DO Emergency Medicine Past Med/Surg History Medical History Adrenal hyperplasia Allergic rhinitis Asthma Dyslipidemia Glaucoma Hypertension Hypokalemia Macular degeneration Nasal polyps Nephrolithiasis Pancreatic cyst Schatzki's ring of distal esophagus Skin lesions Type 2 diabetes mellitus Surgical History History of arthroscopy (~2014) History of cataract surgery History of laparoscopic cholecystectomy History of umbilical hernia repair Hx of esophagogastroduodenoscopy (~2013) Hx of lithotripsy Hx of tonsillectomy S/P TKR (total knee replacement) (~2017) Status post nasal endoscopy with nasal polypectomy Family History Father Cardiac disorder Brother Cardiac disorder Mother Natural with unknown cause Stroke Brother No problems noted. Brother No problems noted. Son No problems noted. Daughter No problems noted. 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 How many Children do You have: 2 Feels Safe at Home: Yes Childhood Exposure to Second-Hand Smoke: Yes caffeine: Yes (1 cup/day) during the past year weight has: remained stable Seatbelt Use: always Sunscreen Use: Yes (sometimes - rarely in the direct sun) Allergies Allergies Allergy/AdvReac Type Severity Reaction Status Date / Time No Known Allergies Allergy Verified 05/20/22 12:34 Home Meds Home Medications Medication Instructions Recorded Confirmed cholecalciferol (vitamin D3) 25 25 mcg PO DAILY 04/13/21 05/20/22 mcg (1,000 unit) capsule vitamins A,C,[id number] 4,296 1 cap PO DAILY 04/13/21 05/20/22 mcg-226 mg-90 mg capsule (PreserVision AREDS) propylene glycol 0.6 % eye drops 1 drp ophthalmic (eye) QID PRN Dry 04/21/22 05/20/22 (Systane Complete) Eye(S) brimonidine 0.2 % eye drops 1 drp OPL BID 05/20/22 05/20/22 dorzolamide 2 % eye drops 1 drp OPL BID 05/20/22 05/20/22 losartan 100 1 tab PO DAILY 05/20/22 05/20/22 mg-hydrochlorothiazide 25 mg tablet potassium chloride 20 mEq 40 meq PO DAILY 05/20/22 05/20/22 tablet,extended release(part/cryst) Previous Rx's Medication Instructions Recorded diltiazem HCl 300 mg 300 mg PO DAILY #90 tabs 05/31/21 tablet,extended release 24 hr fluticasone propionate 220 2 puff inhalation BID #12 grams 10/06/21 mcg/actuation HFA aerosol inhaler (Flovent HFA) tamsulosin 0.4 mg capsule 0.4 mg PO DAILY #30 caps 01/25/22 albuterol sulfate 90 mcg/actuation 2 puff inhalation Q4H PRN 04/21/22 aerosol inhaler (Ventolin HFA) shortness of breath or wheezing #18 grams Results & Data (ED) Vital Signs Vital Signs - 24 hr 05/20/22 17:00 05/20/22 17:14 05/20/22 17:17 Temperature 36.6 C Temperature Source Oral Pulse Rate 88 79 Pulse Rate [Right Finger] 79 Pulse Rate from SpO2 Sensor Pulse Rhythm [Right Finger] Regular Pulse Strength [Right Finger] Normal Respiratory Rate 18 29 H Respiratory Effort / Characteristics Non-Labored Spontaneous Respiratory Depth Normal Respiratory Pattern Tachypnea Blood Pressure 150/80 H Blood Pressure [Right Arm] 151/85 H Blood Pressure Mean 103 Blood Pressure Mean [Right Arm] 107 Blood Pressure Position [Right Arm] Lying Pulse Oximetry 93 95 Oxygen Delivery Method Room Air Room Air Sepsis Recent Fever Within 48 Hours No Sepsis New/Unexplained Change in Mental Status No Sepsis Action Taken by Nursing No Action Required 05/20/22 17:17 05/20/22 17:14 05/20/22 17:20 Temperature Temperature Source Pulse Rate 79 79 73 Pulse Rate [Right Finger] Pulse Rate from SpO2 Sensor 79 74 Pulse Rhythm [Right Finger] Pulse Strength [Right Finger] Respiratory Rate 29 H 21 22 Respiratory Effort / Characteristics Respiratory Depth Respiratory Pattern Blood Pressure Blood Pressure [Right Arm] Blood Pressure Mean Blood Pressure Mean [Right Arm] Blood Pressure Position [Right Arm] Pulse Oximetry 95 94 93 Oxygen Delivery Method Room Air Sepsis Recent Fever Within 48 Hours Sepsis New/Unexplained Change in Mental Status Sepsis Action Taken by Nursing 05/20/22 17:30 05/20/22 17:40 05/20/22 17:54 Temperature Temperature Source Pulse Rate 81 74 129 H Pulse Rate [Right Finger] Pulse Rate from SpO2 Sensor 81 74 76 Pulse Rhythm [Right Finger] Pulse Strength [Right Finger] Respiratory Rate 23 21 25 H Respiratory Effort / Characteristics Respiratory Depth Respiratory Pattern Blood Pressure Blood Pressure [Right Arm] Blood Pressure Mean Blood Pressure Mean [Right Arm] Blood Pressure Position [Right Arm] Pulse Oximetry 93 94 93 Oxygen Delivery Method Sepsis Recent Fever Within 48 Hours Sepsis New/Unexplained Change in Mental Status Sepsis Action Taken by Nursing 05/20/22 18:00 05/20/22 18:10 05/20/22 18:20 Temperature Temperature Source Pulse Rate 75 73 70 Pulse Rate [Right Finger] Pulse Rate from SpO2 Sensor 75 67 70 Pulse Rhythm [Right Finger] Pulse Strength [Right Finger] Respiratory Rate 21 17 18 Respiratory Effort / Characteristics Respiratory Depth Respiratory Pattern Blood Pressure Blood Pressure [Right Arm] Blood Pressure Mean Blood Pressure Mean [Right Arm] Blood Pressure Position [Right Arm] Pulse Oximetry 92 90 93 Oxygen Delivery Method Sepsis Recent Fever Within 48 Hours Sepsis New/Unexplained Change in Mental Status Sepsis Action Taken by Nursing 05/20/22 18:30 05/20/22 18:40 05/20/22 18:50 Temperature Temperature Source Pulse Rate 86 70 73 Pulse Rate [Right Finger] Pulse Rate from SpO2 Sensor 73 70 73 Pulse Rhythm [Right Finger] Pulse Strength [Right Finger] Respiratory Rate 20 18 17 Respiratory Effort / Characteristics Respiratory Depth Respiratory Pattern Blood Pressure Blood Pressure [Right Arm] Blood Pressure Mean Blood Pressure Mean [Right Arm] Blood Pressure Position [Right Arm] Pulse Oximetry 90 92 92 Oxygen Delivery Method Sepsis Recent Fever Within 48 Hours Sepsis New/Unexplained Change in Mental Status Sepsis Action Taken by Nursing 05/20/22 19:00 05/20/22 19:06 05/20/22 19:06 Temperature Temperature Source Pulse Rate 73 79 Pulse Rate [Right Finger] Pulse Rate from SpO2 Sensor 73 74 Pulse Rhythm [Right Finger] Pulse Strength [Right Finger] Respiratory Rate 21 22 Respiratory Effort / Characteristics Respiratory Depth Respiratory Pattern Blood Pressure 137/80 Blood Pressure [Right Arm] Blood Pressure Mean 99 Blood Pressure Mean [Right Arm] Blood Pressure Position [Right Arm] Pulse Oximetry 93 92 Oxygen Delivery Method Sepsis Recent Fever Within 48 Hours Sepsis New/Unexplained Change in Mental Status Sepsis Action Taken by Nursing 05/20/22 19:10 05/20/22 19:20 05/20/22 19:30 Temperature Temperature Source Pulse Rate 69 69 68 Pulse Rate [Right Finger] Pulse Rate from SpO2 Sensor 66 69 68 Pulse Rhythm [Right Finger] Pulse Strength [Right Finger] Respiratory Rate 19 19 16 Respiratory Effort / Characteristics Respiratory Depth Respiratory Pattern Blood Pressure Blood Pressure [Right Arm] Blood Pressure Mean Blood Pressure Mean [Right Arm] Blood Pressure Position [Right Arm] Pulse Oximetry 93 93 94 Oxygen Delivery Method Sepsis Recent Fever Within 48 Hours Sepsis New/Unexplained Change in Mental Status Sepsis Action Taken by Nursing 05/20/22 19:40 Temperature Temperature Source Pulse Rate 68 Pulse Rate [Right Finger] Pulse Rate from SpO2 Sensor 69 Pulse Rhythm [Right Finger] Pulse Strength [Right Finger] Respiratory Rate 21 Respiratory Effort / Characteristics Respiratory Depth Respiratory Pattern Blood Pressure Blood Pressure [Right Arm] Blood Pressure Mean Blood Pressure Mean [Right Arm] Blood Pressure Position [Right Arm] Pulse Oximetry 94 Oxygen Delivery Method Sepsis Recent Fever Within 48 Hours Sepsis New/Unexplained Change in Mental Status Sepsis Action Taken by Nursing Laboratory Data 05/20/22 17:34 05/20/22 17:34 Lab Results 04/07/23 04/07/23 04/07/23 Range/Units 17:34 17:34 17:35 WBC 13.64 H (4.8-10.8) K/ul RBC 4.14 L (4.70-6.10) M/uL Hgb 11.9 L (14.0-18.0) g/dl Hct 34.1 L (42.0-52.0) % MCV 82.4 (80.0-100.0) fL MCH 28.7 (25.0-34.0) pg MCHC 34.9 (32.0-36.0) g/dL RDW Std Deviation 47.7 H (36.4-46.3) fL RDW Coeff of Hilary 15.9 H (11.5-14.5) % Plt Count 255 (130-400) K/uL MPV 10.3 (9.4-12.4) fL Immature Gran % (Auto) 0.8 % Neut % (Auto) 85.7 % Lymph % (Auto) 4.0 % [place] % (Auto) 9.3 % Eos % (Auto) 0.0 % Baso % (Auto) 0.2 % Neut # (Auto) 11.69 H (1.40-6.50) K/uL Lymph # (Auto) 0.54 L (1.2-3.4) K/uL [place] # (Auto) 1.27 H (0.11-0.59) K/uL Eos # (Auto) 0.00 (0-0.50) K/uL Baso # (Auto) 0.03 (0-0.2) K/uL Immature Gran # (Auto) 0.11 (0.01-0.20) K/uL Sodium 137 (136-145) mmol/L Potassium 3.3 L (3.5-5.1) mmol/L Chloride 97 L (98-107) mmol/L Carbon Dioxide 22 (21-32) mmol/L Anion Gap 18 H (3-11) BUN 103 H (6-23) mg/dl Creatinine 9.78 H* (0.6-1.4) mg/dl Est Cr Clr Drug Dosing 6.8 ml/min Est GFR ( Amer) 5.0 ml/min Est GFR (Non-Af Amer) 4.3 ml/min BUN/Creatinine Ratio 10.5 (10-20) Glucose 154 H (70-99(Fasting)) mg/dl Calcium 8.7 (8.6-10.3) mg/dl Total Bilirubin 0.8 (0.2-1.0) mg/dl AST 13 (13-39) U/L ALT 10 (7-52) U/L Alkaline Phosphatase 70 (34-104) U/L Total Protein 6.6 (6.0-8.3) gm/dl Albumin 3.5 (3.4-5.0) gm/dl Globulin 3.1 (2.5-4.0) gm/dl Albumin/Globulin Ratio 1.1 (0.9-2) Lipase 14 (11-82) U/L Urine Color Yellow Urine Appearance Cloudy A (Clear) Urine pH 6.5 (4.5-7.5) Ur Specific [place] 1.011 (1.000-1.030) Urine Protein 1+ H (Negative) Urine Glucose (UA) Trace H (Negative) Urine Ketones Negative (Negative) Urine Blood 2+ H (Negative) Urine Nitrite Negative (Negative) Urine Bilirubin Negative (Negative) Urine Urobilinogen Negative (Negative) Ur Leukocyte Esterase 3+ H (Negative) Urine WBC (Auto) >30 H (0-5) /hpf Urine RBC (Auto) 5-10 H (0-4) /hpf U Hyaline Cast (Auto) 1-5 (0-5) /lpf U Epithel Cells (Auto) 0-5 (0-5) /lpf Urine Bacteria (Auto) Negative (Negative) SARS-CoV-2, RNA, NAAT (NEGATIVE) 05/20/22 Range/Units 19:10 WBC (4.8-10.8) K/ul RBC (4.70-6.10) M/uL Hgb (14.0-18.0) g/dl Hct (42.0-52.0) % MCV (80.0-100.0) fL MCH (25.0-34.0) pg MCHC (32.0-36.0) g/dL RDW Std Deviation (36.4-46.3) fL RDW Coeff of Hilary (11.5-14.5) % Plt Count (130-400) K/uL MPV (9.4-12.4) fL Immature Gran % (Auto) % Neut % (Auto) % Lymph % (Auto) % [place] % (Auto) % Eos % (Auto) % Baso % (Auto) % Neut # (Auto) (1.40-6.50) K/uL Lymph # (Auto) (1.2-3.4) K/uL [place] # (Auto) (0.11-0.59) K/uL Eos # (Auto) (0-0.50) K/uL Baso # (Auto) (0-0.2) K/uL Immature Gran # (Auto) (0.01-0.20) K/uL Sodium (136-145) mmol/L Potassium (3.5-5.1) mmol/L Chloride (98-107) mmol/L Carbon Dioxide (21-32) mmol/L Anion Gap (3-11) BUN (6-23) mg/dl Creatinine (0.6-1.4) mg/dl Est Cr Clr Drug Dosing ml/min Est GFR ( Amer) ml/min Est GFR (Non-Af Amer) ml/min BUN/Creatinine Ratio (10-20) Glucose (70-99(Fasting)) mg/dl Calcium (8.6-10.3) mg/dl Total Bilirubin (0.2-1.0) mg/dl AST (13-39) U/L ALT (7-52) U/L Alkaline Phosphatase (34-104) U/L Total Protein (6.0-8.3) gm/dl Albumin (3.4-5.0) gm/dl Globulin (2.5-4.0) gm/dl Albumin/Globulin Ratio (0.9-2) Lipase (11-82) U/L Urine Color Urine Appearance (Clear) Urine pH (4.5-7.5) Ur Specific [place] (1.000-1.030) Urine Protein (Negative) Urine Glucose (UA) (Negative) Urine Ketones (Negative) Urine Blood (Negative) Urine Nitrite (Negative) Urine Bilirubin (Negative) Urine Urobilinogen (Negative) Ur Leukocyte Esterase (Negative) Urine WBC (Auto) (0-5) /hpf Urine RBC (Auto) (0-4) /hpf U Hyaline Cast (Auto) (0-5) /lpf U Epithel Cells (Auto) (0-5) /lpf Urine Bacteria (Auto) (Negative) SARS-CoV-2, RNA, NAAT NEGATIVE (NEGATIVE) Administered Medications Lactated Ringer's (Lr) 1,000 mls @ 80 mls/hr IV .[id number] GLADYS Stop: 06/19/22 18:59 Last Admin: 05/20/22 19:42 Dose: 80 mls/hr Documented By: PRINTER ASSISTANT Discontinued Medications Ceftriaxone Sodium 1,000 mg/ (Dextrose) 50 mls @ 100 mls/hr IV NOW STA Stop: 05/20/22 18:50 Last Admin: 05/20/22 19:41 Dose: 100 mls/hr Documented By: PRINTER ASSISTANT Imaging Data Radiologist's Impression: Abdomen/Pelvis CT 05/20/22 17:12 CT abd pelvis wo con CLINICAL HISTORY: Urinary retention TECHNIQUE: Helical axial images of the abdomen and pelvis were obtained. Automated dose lowering techniques and/or adjustment according to patient size were utilized for this exam. This exam was performed without intravenous contrast. CT DOSE: 916.40 mGy.cm COMPARISON: Comparison is made to CT abdomen pelvis 07/27/2021 FINDINGS: Lower chest: Bibasilar atelectasis versus scarring is seen. Cardiomegaly and atherosclerosis of the coronary arteries incidentally noted. Liver: Hepatic steatosis is noted. Gallbladder and biliary tree: Patient is status post cholecystectomy. No intra- or extrahepatic biliary ductal dilation. Pancreas: There is a 40 x 30 mm pancreatic cystic lesion. Spleen: Splenule is incidentally noted. Adrenals: Thickening of the bilateral adrenal glands. Kidneys and ureters: Bilateral hydronephrosis and hydroureter seen. Nonobstructive stones are seen in the left. Bladder: Gross catheter is seen. Reproductive organs: A few beads are noted in the prostate. Bowel: Diverticulosis is seen without evidence of diverticulitis. A moderate hiatal hernia is seen. Lymph nodes Retroperitoneal: Unremarkable. Pelvic: Unremarkable. Mesenteric: Unremarkable. Peritoneum: Normal. Vessels: Atherosclerotic calcifications are seen. Abdominal wall: Bilateral fat-containing inguinal hernias are seen. Numerous periumbilical fat-containing hernia noted. Bones: Degenerative changes in the visualized spine. IMPRESSION: 1. There is bilateral hydronephrosis and hydroureter likely due to chronic outlet obstruction from prostatomegaly. The bladder is grade by Gross catheter but the wall appears thickened, likely also due to chronic outlet obstruction. 2. Hepatic steatosis. 3. Diverticulosis without diverticulitis. 4. Pancreatic cystic lesion is noted, this may represent a cyst or IPMN. If not previously evaluated, a MRCP can be performed.. 5. Additional findings as above. ACT 112: Positive. There are findings on this exam that require communication b etween the performing entity and the patient following Patient Test Result Information Act ([place] Act 112) guidelines. Electronically signed by: J Luis Conner M.D. 05/20/2022 6:11 PM Discharge Plan Visit Data Chief Complaint: Urinary Symptoms Stated Complaint: UNABLE TO URINATE ED Provider: Gurvinder Earl Discharge Problem: Acute renal failure Forms Stand Alone Forms: [facility] Prescriptions Prescriptions: No Action PreserVision AREDS [id number],[id number] [id number] capsule 1 cap PO DAILY cholecalciferol (vitamin D3) 25 mcg (1,000 unit) capsule 25 mcg PO DAILY diltiazem HCl 300 mg tablet extended release 24 hr 300 mg PO DAILY Qty: 90 3RF fluticasone propionate [Flovent HFA] 220 mcg/actuation HFA aerosol inhaler 2 puff INH BID Qty: 12 11RF tamsulosin 0.4 mg capsule 0.4 mg PO DAILY Qty: 30 5RF Rx Instructions: Take on pill after supper. Systane Complete 0.6 % drops 1 drp ophthalmic (eye) QID PRN (Reason: Dry Eye(S)) albuterol sulfate [Ventolin HFA] 90 mcg/actuation HFA aerosol inhaler 2 puff INH Q4H PRN (Reason: shortness of breath or wheezing) Qty: 18 5RF potassium chloride 20 mEq tablet,ER particles/crystals 40 meq PO DAILY dorzolamide 2 % drops 1 drp OPL BID losartan-hydrochlorothiazide 100-25 mg tablet 1 tab PO DAILY brimonidine 0.2 % drops 1 drp OPL BID Referrals Referrals: Shahid Gatica MD [Primary Care Provider] - Acute renal failure Qualifiers: Acute renal failure type: unspecified Qualified Code(s): N17.9 - Acute kidney failure, unspecified
[2022-05-20 17:49] LABS: Appearance Urine Cloudy (Clear); Bacteria Urine Automated Negative (Negative); Bilirubin Urine Negative (Negative); Blood Urine 2+ (Negative); Color Urine Yellow; Epithelial Cell Urine Auto 0-5 /lpf (0-5); Glucose Urine UA Trace (Negative); Ketones Urine Negative (Negative); Leukocyte Esterase Urine 3+ (Negative); Nitrite Urine Negative (Negative); Protein Urine 1+ (Negative); Specific Gravity Urine 1.011 (1.000-1.030); Urobilinogen Urine Negative (Negative); WBC Urine Automated >30 /hpf (0-5); pH Urine 6.5 (4.5-7.5)
[2022-05-20 17:50] LABS: Basophils # (auto) 0.03 K/uL (0-0.2); Basophils % (auto) 0.2 %; Hematocrit (blood only) 34.1 % (42.0-52.0); Hemoglobin 11.9 g/dl (14.0-18.0); Immature Granulocytes # (auto) 0.11 K/uL (0.01-0.20); Immature Granulocytes % (auto) 0.8 %; Lymphocytes # (auto) 0.54 K/uL (1.2-3.4); Mean Corpuscular Hemoglobin 28.7 pg (25.0-34.0); Mean Corpuscular Hgb Conc 34.9 g/dL (32.0-36.0); Mean Corpuscular Volume 82.4 fL (80.0-100.0); Mean Platelet Volume 10.3 fL (9.4-12.4); Monocytes # (auto) 1.27 K/uL (0.11-0.59); Monocytes % (auto) 9.3 %; Neutrophils # (auto) 11.69 K/uL (1.40-6.50); Neutrophils % (auto) 85.7 %; Platelet Count 255 K/uL (130-400); RDW Coefficient of Variation 15.9 % (11.5-14.5); RDW Standard Deviation 47.7 fL (36.4-46.3); Red Blood Count 4.14 M/uL (4.70-6.10); White Blood Count 13.64 K/ul (4.8-10.8)
--- NOTE | 2022-05-20 18:12 | CT Scan Report ---
CT abd pelvis wo con CLINICAL HISTORY: Urinary retention TECHNIQUE: Helical axial images of the abdomen and pelvis were obtained. Automated dose lowering tech niques and/or adjustment according to patient size were utilized for this exam. This exam was perfor med without intravenous contrast. CT DOSE: 916.40 mGy.cm COMPARISON: Comparison is made to CT abdomen pelvis 07/27/2021 FINDINGS: Lower chest: Bibasilar atelectasis versus scarring is seen. Cardiomegaly and atherosclerosis of the coronary arteries incidentally noted. Liver: Hepatic steatosis is noted. Gallbladder and biliary tree: Patient is status post cholecystectomy. No intra- or extrahepatic bilia ry ductal dilation. Pancreas: There is a 40 x 30 mm pancreatic cystic lesion. Spleen: Splenule is incidentally noted. Adrenals: Thickening of the bilateral adrenal glands. Kidneys and ureters: Bilateral hydronephrosis and hydroureter seen. Nonobstructive stones are seen in the left. Bladder: Gross catheter is seen. Reproductive organs: A few beads are noted in the prostate. Bowel: Diverticulosis is seen without evidence of diverticulitis. A moderate hiatal hernia is seen. Lymph nodes Retroperitoneal: Unremarkable. Pelvic: Unremarkable. Mesenteric: Unremarkable. Peritoneum: Normal. Vessels: Atherosclerotic calcifications are seen. Abdominal wall: Bilateral fat-containing inguinal hernias are seen. Numerous periumbilical fat-contai elena hernia noted. Bones: Degenerative changes in the visualized spine. IMPRESSION: 1. There is bilateral hydronephrosis and hydroureter likely due to chronic outlet obstruction from p rostatomegaly. The bladder is grade by Gross catheter but the wall appears thickened, likely also due to chronic outlet obstruction. 2. Hepatic steatosis. 3. Diverticulosis without diverticulitis. 4. Pancreatic cystic lesion is noted, this may represent a cyst or IPMN. If not previously evaluated , a MRCP can be performed.. 5. Additional findings as above. ACT 112: Positive. There are findings on this exam that require communication between the performing entity and the patient following Patient Test Result Information Act ([place] Act 112) guidelines. Electronically signed by: J Luis Conner M.D. 05/20/2022 6:11 PM
[2022-05-20 18:21] LABS: Albumin Globulin Ratio 1.1 (0.9-2); Albumin Level 3.5 gm/dl (3.4-5.0); BUN Creatinine Ratio 10.5 (10-20); Bilirubin,Total 0.8 mg/dl (0.2-1.0); Calcium 8.7 mg/dl (8.6-10.3); Creatinine Clr Calc Pharmacy 6.8 ml/min; Est GFR (Non-African American) 4.3 ml/min; Globulin 3.1 gm/dl (2.5-4.0); Potassium 3.3 mmol/L (3.5-5.1); Total Protein 6.6 gm/dl (6.0-8.3)
[2022-05-20] MEDS ORDERED: cefTRIAXone SODIUM 1,000 MG in DEXTROSE 5% AD-VAN 50 ML IV STA (18:21)
[2022-05-20] MEDS ORDERED: STAT IV STA (18:46)
--- NOTE | 2022-05-20 18:47 | History & Physical Report ---
Date of Service May 20, 2022 Assessment & Plan (1) Urinary retention: Plan: 1.8L after elaine catheter insertion in the ER Given history of chemoradiation for prostate cancer will consult urology for any further recommendations Increase tamsulosin to 0.4mg PO BID (2) Acute renal failure: Plan: Suspect post renal. Cr 9.78 on admission from baseline 1.42 Aim to have equal fluid balance. Monitor I&Os. Likely to have some diuresis once renal function improves and will start on slow IV fluids to make sure he doesn't develop a pre-renal MIGUEL ANGEL as this renal function improves. (3) Hypertension: Plan: Hold losartan-HCTZ due to MIGUEL ANGEL Continue diltiazem (4) High anion gap metabolic acidosis: Plan: Bicarb normal suspect with compensating metabolic alkalosis. Suspect anion gap due to uremia. (5) Hypokalemia: Plan: Aim K > 3.0 in setting of MIGUEL ANGEL. No need for replacement at this time. (6) Asthma: Plan: Continue fluticasone inhaler (7) Type 2 diabetes mellitus: Plan: HbA1C 7.Nov Managed with diet Novolog: --Goal BSG Range: Low 140 mg/dL, High 180 mg/dL --Correction Factor: 45 mg/dL/unit no carb coverage --BSGs ACHS if eating, q6h if npo (8) Pancreatic mass: Plan: Consider follow up MRCP as outpatient Plan VTE Prophylaxis - chemical prophylaxis deferred due to hematuria Diet - T2DM, heart healthy Disposition - admit to med/tele Admission and Anticipated Discharge Date Admission Date: May 20, 2022 History of Present Illness Chief Complaint: Urine retention Primary Care Provider: Shahid Gatica MD Ian Hernandez is an 86 year old male who presents to the ER on advice of his PCP for difficulty urinating for the last 3 days with outpatient labs showing an MIGUEL ANGEL with Cr 9.81. He has a significant history of prostate cancer treated with chemoradiation. He reports generalized illness with decreased balance and weakness for the last week. No nausea, vomiting or chest pain. He has noticed leg swelling getting worse over the last week but no orthopnea, PND or shortness of breath. He denies any dysuria or CVA tenderness although his son reports yesterday he was complaining of lower back pain. In the ER elaine catheter was placed for output of 1.8L. He does report distention before elaine catheter was placed but no abdominal pain. Allergies Allergy/AdvReac Type Severity Reaction Status Date / Time No Known Allergies Allergy Verified 05/20/22 12:34 Home Medications Medication Instructions Recorded Confirmed Type cholecalciferol (vitamin D3) 25 25 mcg PO DAILY 04/13/21 05/20/22 History mcg (1,000 unit) capsule vitamins A,C,V-upvo-tgrcwb 4,296 1 cap PO DAILY 04/13/21 05/20/22 History mcg-226 mg-90 mg capsule (PreserVision AREDS) diltiazem HCl 300 mg 300 mg PO DAILY #90 tabs 05/31/21 05/20/22 Rx tablet,extended release 24 hr fluticasone propionate 220 2 puff inhalation BID #12 grams 10/06/21 05/20/22 Rx mcg/actuation HFA aerosol inhaler (Flovent HFA) tamsulosin 0.4 mg capsule 0.4 mg PO DAILY #30 caps 01/25/22 05/20/22 Rx albuterol sulfate 90 mcg/actuation 2 puff inhalation Q4H PRN 04/21/22 05/20/22 Rx aerosol inhaler (Ventolin HFA) shortness of breath or wheezing #18 grams propylene glycol 0.6 % eye drops 1 drp ophthalmic (eye) QID PRN Dry 04/21/22 05/20/22 History (Systane Complete) Eye(S) brimonidine 0.2 % eye drops 1 drp OPL BID 05/20/22 05/20/22 History dorzolamide 2 % eye drops 1 drp OPL BID 05/20/22 05/20/22 History losartan 100 1 tab PO DAILY 05/20/22 05/20/22 History mg-hydrochlorothiazide 25 mg tablet potassium chloride 20 mEq 40 meq PO DAILY 05/20/22 05/20/22 History tablet,extended release(part/cryst) Past Med/Surg History Medical History Adrenal hyperplasia Allergic rhinitis Asthma Dyslipidemia Glaucoma Hypertension Hypokalemia Macular degeneration Nasal polyps Nephrolithiasis Pancreatic cyst Schatzki's ring of distal esophagus Skin lesions Type 2 diabetes mellitus Surgical History History of arthroscopy (~2014) History of cataract surgery History of laparoscopic cholecystectomy History of umbilical hernia repair Hx of esophagogastroduodenoscopy (~2013) Hx of lithotripsy Hx of tonsillectomy S/P TKR (total knee replacement) (~2016) Status post nasal endoscopy with nasal polypectomy Family History Father Cardiac disorder Brother Cardiac disorder Mother Natural with unknown cause Stroke Brother No problems noted. Brother No problems noted. Son No problems noted. Daughter No problems noted. 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 How many Children do You have: 2 Other Information That Helps Us Care for You: No Feels Safe at Home: Yes Childhood Exposure to Second-Hand Smoke: Yes caffeine: Yes (1 cup/day) during the past year weight has: remained stable Seatbelt Use: always Sunscreen Use: Yes (sometimes - rarely in the direct sun) Assistive Devices: Cane, Glasses and Hearing Aid - Right Review of Systems Review of Systems: All systems reviewed & are unremarkable except as noted in HPI & below Physical Exam Constitutional: WD/WN, vitals as above Eyes: PERRL, conjunctivae normal, anicteric sclerae ENMT: external ear and nose normal, oropharynx normal Neck: trachea midline, no thyromegaly Respiratory: normal respiratory effort, lungs clear to auscultation Cardiovascular: Rate/Rhythm: regular rate and regular rhythm Extremities: normal capillary refill and + pedal edema (2+ pitting edema b/l equal to knees); no calf tenderness Gastrointestinal (Abdomen): normal bowel sounds, soft, nontender, no hepatosplenomegaly Musculoskeletal: no cyanosis or clubbing, extremities motor strength 5/5 Skin: no rashes, warm and dry Neurologic: moves all extremities and awake; not confused Motor/Sensory: no tremor and no asterixis Coordination: normal [id number] test Psychiatric: A+Ox3, euthymic affect Results & Data Results & Data Vital Signs (Past 12 Hours) Vital Signs Temp Pulse Resp BP Pulse Ox O2 Del Method 05/20/22 17:14 79 05/20/22 17:00 36.6 C 88 18 150/80 H 93 Room Air Laboratory Results Abnormal lab results 05/20/22 05/20/22 05/20/22 Range/Units 17:34 17:34 17:35 WBC 13.64 H (4.8-10.8) K/ul RBC 4.14 L (4.70-6.10) M/uL Hgb 11.9 L (14.0-18.0) g/dl Hct 34.1 L (42.0-52.0) % RDW Std Deviation 47.7 H (36.4-46.3) fL RDW Coeff of Hilary 15.9 H (11.5-14.5) % Neut # (Auto) 11.69 H (1.40-6.50) K/uL Lymph # (Auto) 0.54 L (1.2-3.4) K/uL Haines # (Auto) 1.27 H (0.11-0.59) K/uL Potassium 3.3 L (3.5-5.1) mmol/L Chloride 97 L (98-107) mmol/L Anion Gap 18 H (3-11) BUN 103 H (6-23) mg/dl Creatinine 9.78 H* (0.6-1.4) mg/dl Glucose 154 H (70-99(Fasting)) mg/dl Urine Appearance Cloudy A (Clear) Urine Protein 1+ H (Negative) Urine Glucose (UA) Trace H (Negative) Urine Blood 2+ H (Negative) Ur Leukocyte Esterase 3+ H (Negative) Urine WBC (Auto) >30 H (0-5) /hpf Urine RBC (Auto) 5-10 H (0-4) /hpf Diagnostic Findings CT abd pelvis wo con CLINICAL HISTORY: Urinary retention TECHNIQUE: Helical axial images of the abdomen and pelvis were obtained. Automated dose lowering techniques and/or adjustment according to patient size were utilized for this exam. This exam was performed without intravenous contrast. CT DOSE: 916.40 mGy.cm COMPARISON: Comparison is made to CT abdomen pelvis 07/27/2021 FINDINGS: Lower chest: Bibasilar atelectasis versus scarring is seen. Cardiomegaly and atherosclerosis of the coronary arteries incidentally noted. Liver: Hepatic steatosis is noted. Gallbladder and biliary tree: Patient is status post cholecystectomy. No intra- or extrahepatic biliary ductal dilation. Pancreas: There is a 40 x 30 mm pancreatic cystic lesion. Spleen: Splenule is incidentally noted. Adrenals: Thickening of the bilateral adrenal glands. Kidneys and ureters: Bilateral hydronephrosis and hydroureter seen. Nonobstructive stones are seen in the left. Bladder: Elaine catheter is seen. Reproductive organs: A few beads are noted in the prostate. Bowel: Diverticulosis is seen without evidence of diverticulitis. A moderate hiatal hernia is seen. Lymph nodes Retroperitoneal: Unremarkable. Pelvic: Unremarkable. Mesenteric: Unremarkable. Peritoneum: Normal. Vessels: Atherosclerotic calcifications are seen. Abdominal wall: Bilateral fat-containing inguinal hernias are seen. Numerous periumbilical fat-containing hernia noted. Bones: Degenerative changes in the visualized spine. IMPRESSION: 1. There is bilateral hydronephrosis and hydroureter likely due to chronic outlet obstruction from prostatomegaly. The bladder is grade by Elaine catheter but the wall appears thickened, likely also due to chronic outlet obstruction. 2. Hepatic steatosis. 3. Diverticulosis without diverticulitis. 4. Pancreatic cystic lesion is noted, this may represent a cyst or IPMN. If not previously evaluated, a MRCP can be performed.. 5. Additional findings as above. Medications Administered ER Medications Given: Ceftriaxone 1g IV Code Status & VTE Plan Code Status DNR/DNI per patient wishes VTE Prophylaxis Plan VTE Prophylaxis will be ordered: Yes PG Care Time/CCT Total # of Minutes Spent Total Time Spent with Patient: Total time spent is greater than 50% in coordination of care (as documented) at patient's floor/unit and/or counseling patient: Coding Level of Care Code 53507 INT INP/OBS CARE 3/75MIN Diagnoses Urinary retention R33.9 Acute renal failure N17.9 Acute renal failure type: unspecified Hypertension I10 High anion gap metabolic acidosis E87.29 Hypokalemia E87.6 Asthma J45.909 Type 2 diabetes mellitus E11.69 Diabetes mellitus complication status: with other specified complication Diabetes mellitus watermelon harvesting supervisor insulin use: without watermelon harvesting supervisor use Pancreatic mass K86.89 (2) Acute renal failure Acute renal failure type: unspecified Qualified Code(s): N17.9 - Acute kidney failure, unspecified (7) Type 2 diabetes mellitus Diabetes mellitus complication status: with other specified complication Diabetes mellitus skilled nursing insulin use: without watermelon harvesting supervisor use Qualified Code(s): E11.69 - Type 2 diabetes mellitus with other specified complication
[2022-05-20] MEDS ORDERED: SODIUM BICARBONATE 8.4% 150 MEQ in DEXTROSE 5% 1,000 ML IV SCH (19:00)
[2022-05-20] MEDS: LACTATED RINGER'S 1,000 ML IV SCH (19:42)
[2022-05-20] MEDS ORDERED: ACETAMINOPHEN 325 MG TAB PO PRN (21:18)
[2022-05-20] MEDS ORDERED: FLUTICASONE HFA 220 MCG INHALER INH SCH (21:18)
[2022-05-20] MEDS ORDERED: DEXTROSE 50% 50 ML SYRINGE IV PRN (21:35)
[2022-05-20] MEDS ORDERED: GLUCAGON FOR INJ 1 MG VIAL SQ PRN (21:35)
[2022-05-20] MEDS ORDERED: CARBOHYDRATES FOR HYPOGLYCEMIA PO PRN (21:35)
[2022-05-20] MEDS ORDERED: GLUCOSE 40% GEL 15 GM TUBE PO PRN (21:35)
[2022-05-20] MEDS ORDERED: GLUCOSE 10 TAB/TUBE PO PRN (21:35)
[2022-05-20] MEDS: DORZOLAMIDE HCL 2% OPH SOLN 10 ML BTL OPL SCH (23:14)
[2022-05-20] MEDS: TAMSULOSIN HCL 0.4 MG CAP PO SCH (23:14)
[2022-05-21 07:12] LABS: Estimated Average Glucose 154 mg/dl
[2022-05-21 07:26] LABS: BUN Creatinine Ratio 13.2 (10-20); Calcium 8.1 mg/dl (8.6-10.3); Creatinine Clr Calc Pharmacy 9.3 ml/min; Est GFR (African American) 8.5 ml/min; Est GFR (Non-African American) 7.3 ml/min; Potassium 2.8 mmol/L (3.5-5.1)
[2022-05-21] MEDS: FLUTICASONE FUROATE 200MCG 14 PUFFS/INHALER INH SCH (08:23)
[2022-05-21] MEDS: DORZOLAMIDE HCL 2% OPH SOLN 10 ML BTL OPL SCH ×2 (08:24→21:09)
[2022-05-21] MEDS: TAMSULOSIN HCL 0.4 MG CAP PO SCH ×2 (08:24→21:09)
[2022-05-21] MEDS: dilTIAZem HCL 300 MG CAPCR PO SCH (08:24)
[2022-05-21] MEDS: INSULIN ASPART PER UNIT CHARGE SC SCH ×4 (08:26→21:09)
[2022-05-21] MEDS: LACTATED RINGER'S 1,000 ML IV SCH (08:27)
--- NOTE | 2022-05-21 09:54 | Urology Consultation ---
Date of Consultation May 21, 2022 Assessment & Plan (1) Urinary retention: (2) Acute renal failure: (3) Hypertension: (4) High anion gap metabolic acidosis: (5) Prostate cancer: Plan Patient with history of prostate cancer has been following with Dr. Chen. Had reoccurrence of prostate cancer and had been on androgen deprivation and radiation. Had significant bladder outlet obstruction issues with considerable incomplete emptying and bother. Had been found to be in severe volume retention with considerable electrolyte abnormalities extremely high creatinine and acute renal failure likely due to obstruction. Patient is admitted to the hospitalist team and is undergoing close management and monitoring. Per records patient has had over 5 L of urine drainage since placement of the catheter. Initial placement was 1800 cc. Patient has been tolerating the catheter. Had severe distention of the abdomen as well as large fluid overload this has been slowly improving. Patient's imaging was all reviewed interpreted by myself had considerable bilateral hydronephrosis. Does have an incidental finding of a possible lesion of the pancreas. No considerable signs of obstructing stones or other blockages in the ureter. Patient's labs were all reviewed most recent creatinine was 6.35 this is down from over 9. White count is currently 13.64. Patient had a PSA in the fall which was 0.24. Patient's sodium level when checked this morning was 141. Patient is likely having considerable postobstructive diuresis. We will need to be monitored closely for any major changes in electrolytes and close monitoring. If necessary may need to consider hypertonic saline or other options for management of sodium levels and close monitoring of his other electrolytes with the diuresis. We will likely need to maintain catheter until follow-up we will probably need to consider moving forward with scope and other assessment in order to rule out considerable other obstructive issues and problems. Patient will likely need outpatient follow-up we will plan to monitor i ntermittently through hospitalization to make sure the catheter remains draining and without any major problems. Blood would not be uncommon or unexpected due to the severity of the distention. If any issues with clots may need irrigation. We will plan to came continue with catheter drainage and close monitoring of electrolytes over time. Patient complicated medical and surgical history is rev iewed and summarized above all imaging was reviewed interpreted by myself. Current labs were all reviewed with pertinent values as above. Vitals are currently at this point stable with mild bradycardia and no other major abnormalities. History of Present Illness Attending Physician: Murali Evans History of Present Illness Consult for urinary issues with incomplete emptying and severe and significant retention. Patient is a known patient with history of prostate cancer. Has had issues with incomplete emptying and drainage related problems. Had 3 days of poor urine output. Was seen by PCP was eventually evaluated by the emergency department found to be in severe volume retention with acute renal failure. A catheter was placed and initially 1800 cc of urine was drained immediately. Patient was then admitted for close monitoring and management. Had a number of electrolyte abnormalities. Still has a considerable high elevation of his creatinine likely due to increasing obstructive issues. Patient has mild to moderate discomfort in pelvis and groin going to back and side in waves. Is dealing with acute illness. Has been deconditioned from this. Has decreased mobility significantly with acute issues. Patient has not had complete return to normal bowel function. Has had some minor urinary issues in the past. Denies bleeding. No severe nausea or vomiting. Currently no fevers. Patient has complex history of prostate cancer with history of incomplete emptying. Patient had been being managed for considerable issues related to recurrence of prostate cancer with metastatic disease. Had been seeing radiation oncology and undergoing androgen deprivation. Has previously been following with Dr. Chen. Allergies Allergy/AdvReac Type Severity Reaction Status Date / Time No Known Allergies Allergy Verified 05/20/22 12:34 Home Medications Medication Instructions Recorded Confirmed Type cholecalciferol (vitamin D3) 25 25 mcg PO DAILY 04/13/21 05/20/22 History mcg (1,000 unit) capsule vitamins A,C,P-jfpt-grjkax 4,296 1 cap PO DAILY 04/13/21 05/20/22 History mcg-226 mg-90 mg capsule (PreserVision AREDS) diltiazem HCl 300 mg 300 mg PO DAILY #90 tabs 05/31/21 05/20/22 Rx tablet,extended release 24 hr fluticasone propionate 220 2 puff inhalation BID #12 grams 10/06/21 05/20/22 Rx mcg/actuation HFA aerosol inhaler (Flovent HFA) tamsulosin 0.4 mg capsule 0.4 mg PO DAILY #30 caps 01/25/22 05/20/22 Rx albuterol sulfate 90 mcg/actuation 2 puff inhalation Q4H PRN 04/21/22 05/20/22 Rx aerosol inhaler (Ventolin HFA) shortness of breath or wheezing #18 grams propylene glycol 0.6 % eye drops 1 drp ophthalmic (eye) QID PRN Dry 04/21/22 05/20/22 History (Systane Complete) Eye(S) brimonidine 0.2 % eye drops 1 drp OPL BID 05/20/22 05/20/22 History dorzolamide 2 % eye drops 1 drp OPL BID 05/20/22 05/20/22 History losartan 100 1 tab PO DAILY 05/20/22 05/20/22 History mg-hydrochlorothiazide 25 mg tablet potassium chloride 20 mEq 40 meq PO DAILY 05/20/22 05/20/22 History tablet,extended release(part/cryst) Patient History Medical History Adrenal hyperplasia Allergic rhinitis Asthma Dyslipidemia Glaucoma Hypertension Hypokalemia Macular degeneration Nasal polyps Nephrolithiasis Pancreatic cyst Schatzki's ring of distal esophagus Skin lesions Type 2 diabetes mellitus Surgical History History of arthroscopy (~2014) Left knee History of cataract surgery bilateral History of laparoscopic cholecystectomy History of umbilical hernia repair Hx of esophagogastroduodenoscopy (~2013) With dilatation of Schatzki ring Hx of lithotripsy Hx of tonsillectomy S/P TKR (total knee replacement) (~2016) Left Status post nasal endoscopy with nasal polypectomy Family History Father , 57yo Cardiac disorder Brother Cardiac disorder Mother , 91yo Natural with unknown cause Stroke Brother No problems noted. Brother No problems noted. Son No problems noted. Daughter No problems noted. 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 HEENT: Normocephalic Atraumatic. Inspection normal. Cranial Nerves 2-12 Grossly intact. Nares are clear. Neck is supple. Normal inspection of face. Normal inspection of neck. Neurologic: No deficits on inspection. Baseline for motor function and sensory. Psychologic: Normal affect. Mild exacerbation of baseline issues. Respiratory: Nonlabored. No use of accessory muscles. No tachypnea or dyspnea. Cardiovascular: No tachycardia Skin: [place] and Dry. No rashes or visible lesions. Extremities: Moving without issues. No motor deficits on inspection Lymphatics: Moderate edema Abdomen: Soft moderately distended. No rebound or guarding. : Catheter in place draining clear yellow urine Results & Data Vital Signs (Past 12 Hours) Vital Signs Temp Pulse Pulse Resp BP Pulse Ox O2 Del Method 05/21/22 07:40 59 L 05/21/22 07:35 36.7 C 59 L 17 129/66 92 Room Air 05/21/22 03:44 36.8 C 60 18 129/73 92 Room Air PG Care Time/CCT Total # of Minutes Spent Total Time Spent with Patient: Total time spent is greater than 50% in coordination of care (as documented) at patient's floor/unit and/or counseling patient: Coding Level of Care Code 60470 INT INP/OBS CARE 3/75MIN Diagnoses Urinary retention R33.9 Acute renal failure N17.9 Acute renal failure type: unspecified Hypertension I10 High anion gap metabolic acidosis E87.29 Prostate cancer C61 (2) Acute renal failure Acute renal failure type: unspecified Qualified Code(s): N17.9 - Acute kidney failure, unspecified
[2022-05-21] MEDS: POTASSIUM CHLORIDE CRTAB 20 MEQ TABCR PO SCH ×2 (12:05→21:09)
[2022-05-21] MEDS: NSS + 20MEQ KCL 20 MEQ/1,000 ML BAG IV SCH ×2 (12:05→21:09)
--- NOTE | 2022-05-21 12:42 | Hospitalist Progress Note ---
Date of Service May 21, 2022 Assessment & Plan (1) Urinary retention: Plan: Patient has had large amounts of urine output since admission. Increase tamsulosin to 0.4mg PO BID Ordered senna/docusate for constipation. IMproved with elaine catheter, appreciate input from Urology. (2) Acute renal failure: Plan: Suspect post renal. Cr 9.78 on admission from baseline 1.42 Aim to have equal fluid balance. Monitor I&Os. Likely to have some diuresis once renal function improves will continue IV fluids and monitor his electrolytes reviewed PRP on 05/21 (3) Hypertension: Plan: Hold losartan-HCTZ due to MIGUEL AGNEL Continue diltiazem (4) High anion gap metabolic acidosis: Plan: Bicarb normal suspect with compensating metabolic alkalosis. Suspect anion gap due to uremia. (5) Hypokalemia: Plan: Aim K > 3.0 in setting of MIGUEL ANGEL. No need for replacement at this time. (6) Asthma: Plan: Continue fluticasone inhaler (7) Type 2 diabetes mellitus: Plan: HbA1C 7.Nov Managed with diet Novolog: --Goal BSG Range: Low 140 mg/dL, High 180 mg/dL --Correction Factor: 45 mg/dL/unit no carb coverage --BSGs ACHS if eating, q6h if npo (8) Pancreatic mass: Plan: Consider follow up MRCP as outpatient Admission and Anticipated Discharge Date Admission Date: May 20, 2022 Subjective Patient reports feeling well. He has no new complaints. He does state he has not had a BM today. Review of Systems Review of Systems: All systems reviewed & are unremarkable except as noted in HPI & below Physical Exam Physical Exam: Constitutional: WD/WN, vitals as above Eyes: PERRL, conjunctivae normal, anicteric sclerae ENMT: external ear and nose normal, oropharynx normal Neck: trachea midline, no thyromegaly Respiratory: normal respiratory effort, lungs clear to auscultation Cardiovascular: Rate/Rhythm: regular rate and regular rhythm Extremities: normal capillary refill and + pedal edema (2+ pitting edema b/l equal to knees); no calf tenderness Gastrointestinal (Abdomen): normal bowel sounds, soft, nontender, no hepatosplenomegaly Musculoskeletal: no cyanosis or clubbing, extremities motor strength 5/5 Skin: no rashes, warm and dry Neurologic: moves all extremities and awake; not confused Motor/Sensory: no tremor and no asterixis Coordination: normal [id number] test Psychiatric: A+Ox3, euthymic affect Results & Data Results & Data Vital Signs (Past 12 Hours) Vital Signs Temp Pulse Pulse Resp BP BP Pulse Ox 05/21/22 10:57 36.4 C L 65 20 142/76 H 92 05/21/22 07:40 59 L 05/21/22 07:35 36.7 C 59 L 17 129/66 92 05/21/22 03:44 36.8 C 60 18 129/73 92 O2 Del Method 05/21/22 10:57 Room Air 05/21/22 07:40 05/21/22 07:35 Room Air 05/21/22 03:44 Room Air PG Care Time/CCT Total # of Minutes Spent Total Time Spent with Patient: Total time spent is greater than 50% in coordination of care (as documented) at patient's floor/unit and/or counseling patient: Coding Level of Care Code 99162 SUB INP/OBS CARE 2/35MIN Diagnoses Urinary retention R33.9 Acute renal failure N17.9 Acute renal failure type: unspecified Hypertension I10 High anion gap metabolic acidosis E87.29 Hypokalemia E87.6 Asthma J45.909 Type 2 diabetes mellitus E11.69 Diabetes mellitus complication status: with other specified complication Diabetes mellitus nursing home insulin use: without nursing home use Pancreatic mass K86.89 (2) Acute renal failure Acute renal failure type: unspecified Qualified Code(s): N17.9 - Acute kidney failure, unspecified (7) Type 2 diabetes mellitus Diabetes mellitus complication status: with other specified complication Diabetes mellitus nursing home insulin use: without hand stripper use Qualified Code(s): E11.69 - Type 2 diabetes mellitus with other specified complication
[2022-05-21] MEDS: DOCUSATE SODIUM/SENNA 50/8.6MG TAB PO SCH ×2 (13:09→18:01)
[2022-05-21] MEDS: cefTRIAXone SODIUM 1,000 MG in DEXTROSE 5% AD-VAN 50 ML IV SCH (16:28)
[2022-05-21 18:38] LABS: Calcium 8.3 mg/dl (8.6-10.3); Creatinine Clr Calc Pharmacy 14.2 ml/min; Est GFR (African American) 14.1 ml/min; Est GFR (Non-African American) 12.2 ml/min; Potassium 3.1 mmol/L (3.5-5.1)
[2022-05-22 07:13] LABS: BUN Creatinine Ratio 18.9 (10-20); Calcium 8.3 mg/dl (8.6-10.3); Creatinine Clr Calc Pharmacy 20.7 ml/min; Est GFR (African American) 22.2 ml/min; Est GFR (Non-African American) 19.2 ml/min; Potassium 3.3 mmol/L (3.5-5.1)
[2022-05-22] MEDS: TAMSULOSIN HCL 0.4 MG CAP PO SCH ×2 (08:13→20:51)
[2022-05-22] MEDS: dilTIAZem HCL 300 MG CAPCR PO SCH (08:13)
[2022-05-22] MEDS: POTASSIUM CHLORIDE CRTAB 20 MEQ TABCR PO SCH (08:14)
[2022-05-22] MEDS: DOCUSATE SODIUM/SENNA 50/8.6MG TAB PO SCH (08:14)
[2022-05-22] MEDS: FLUTICASONE FUROATE 200MCG 14 PUFFS/INHALER INH SCH (08:15)
[2022-05-22] MEDS: DORZOLAMIDE HCL 2% OPH SOLN 10 ML BTL OPL SCH ×2 (08:16→20:51)
[2022-05-22] MEDS: INSULIN ASPART PER UNIT CHARGE SC SCH ×4 (08:24→20:51)
[2022-05-22] MEDS: SODIUM CHLOR 0.45% + 20MEQ KCL 20 MEQ/1,000 ML BAG IV SCH ×2 (11:20→20:57)
[2022-05-22] MEDS: cefTRIAXone SODIUM 1,000 MG in DEXTROSE 5% AD-VAN 50 ML IV SCH (17:01)
[2022-05-22 19:04] LABS: BUN Creatinine Ratio 18.3 (10-20); Calcium 8.1 mg/dl (8.6-10.3); Creatinine Clr Calc Pharmacy 23.6 ml/min; Est GFR (Non-African American) 22.5 ml/min; Potassium 3.6 mmol/L (3.5-5.1)
--- NOTE | 2022-05-22 22:49 | Hospitalist Progress Note ---
Date of Service May 22, 2022 Assessment & Plan (1) Urinary retention: Plan: Patient has had large amounts of urine output since admission. Increase tamsulosin to 0.4mg PO BID Ordered senna/docusate for constipation. IMproved with elaine catheter, appreciate input from Urology. Creatinine not at baseline on 05/22 Patient also is hypokalemic. (2) Acute renal failure: Plan: Suspect post renal. Cr 9.78 on admission from baseline 1.42 Aim to have equal fluid balance. Monitor I&Os. Likely to have some diuresis once renal function improves will continue IV fluids and monitor his electrolytes reviewed PRP on 05/21 (3) Hypertension: Plan: Hold losartan-HCTZ due to MIGUEL ANGEL Continue diltiazem (4) High anion gap metabolic acidosis: Plan: Bicarb normal suspect with compensating metabolic alkalosis. Suspect anion gap due to uremia. (5) Hypokalemia: Plan: Aim K > 3.0 in setting of MIGUEL ANGEL. No need for replacement at this time. (6) Asthma: Plan: Continue fluticasone inhaler (7) Type 2 diabetes mellitus: Plan: HbA1C 7.Nov Managed with diet Novolog: --Goal BSG Range: Low 140 mg/dL, High 180 mg/dL --Correction Factor: 45 mg/dL/unit no carb coverage --BSGs ACHS if eating, q6h if npo (8) Pancreatic mass: Plan: Consider follow up MRCP as outpatient Admission and Anticipated Discharge Date Admission Date: May 20, 2022 Subjective 86 yo male reports feeling well. He still feels weak however. Review of Systems Review of Systems: All systems reviewed & are unremarkable except as noted in HPI & below Physical Exam Physical Exam: Constitutional: WD/WN, vitals as above Eyes: PERRL, conjunctivae normal, anicteric sclerae ENMT: external ear and nose normal, oropharynx normal Neck: trachea midline, no thyromegaly Respiratory: normal respiratory effort, lungs clear to auscultation Cardiovascular: Rate/Rhythm: regular rate and regular rhythm Extremities: normal capillary refill and + pedal edema (2+ pitting edema b/l equal to knees); no calf tenderness Gastrointestinal (Abdomen): normal bowel sounds, soft, nontender, no hepatosplenomegaly Musculoskeletal: no cyanosis or clubbing, extremities motor strength 5/5 Skin: no rashes, warm and dry Neurologic: moves all extremities and awake; not confused Motor/Sensory: no tremor and no asterixis Coordination: normal [id number] test Psychiatric: A+Ox3, euthymic affect Results & Data Results & Data Vital Signs (Past 12 Hours) Vital Signs Temp Pulse Resp BP Pulse Ox O2 Del Method 05/22/22 22:26 Room Air 05/22/22 21:34 Room Air 05/22/22 19:39 37.0 C 66 18 169/81 H 97 Room Air 05/22/22 16:30 Room Air 05/22/22 15:16 36.3 C L 60 20 148/83 H 96 Room Air 05/22/22 11:22 36.5 C 66 20 154/83 H 94 Room Air 05/22/22 12:06 Room Air PG Care Time/CCT Total # of Minutes Spent Total Time Spent with Patient: Total time spent is greater than 50% in coordination of care (as documented) at patient's floor/unit and/or counseling patient: Coding Level of Care Code 14304 SUB INP/OBS CARE 2/35MIN Diagnoses Urinary retention R33.9 Acute renal failure N17.9 Acute renal failure type: unspecified Hypertension I10 High anion gap metabolic acidosis E87.29 Hypokalemia E87.6 Asthma J45.909 Type 2 diabetes mellitus E11.69 Diabetes mellitus complication status: with other specified complication Diabetes mellitus fpc insulin use: without extermination supervisor use Pancreatic mass K86.89 (2) Acute renal failure Acute renal failure type: unspecified Qualified Code(s): N17.9 - Acute kidney failure, unspecified (7) Type 2 diabetes mellitus Diabetes mellitus complication status: with other specified complication Diabetes mellitus fpc insulin use: without extermination supervisor use Qualified Code(s): E11.69 - Type 2 diabetes mellitus with other specified complication
[2022-05-23 07:33] LABS: Calcium 8.1 mg/dl (8.6-10.3); Creatinine Clr Calc Pharmacy 31.4 ml/min; Est GFR (African American) 36.7 ml/min; Est GFR (Non-African American) 31.6 ml/min; Potassium 3.5 mmol/L (3.5-5.1)
[2022-05-23 07:51] VITALS: TEMP 98.2
[2022-05-23] MEDS: INSULIN ASPART PER UNIT CHARGE SC SCH ×3 (08:42→17:12)
[2022-05-23] MEDS: FLUTICASONE FUROATE 200MCG 14 PUFFS/INHALER INH SCH (08:53)
[2022-05-23] MEDS: dilTIAZem HCL 300 MG CAPCR PO SCH (08:54)
[2022-05-23] MEDS: DORZOLAMIDE HCL 2% OPH SOLN 10 ML BTL OPL SCH (08:54)
[2022-05-23] MEDS: TAMSULOSIN HCL 0.4 MG CAP PO SCH (08:54)
[2022-05-23] MEDS: DOCUSATE SODIUM/SENNA 50/8.6MG TAB PO SCH (08:54)
[2022-05-23 15:29] VITALS: BP 132/80; PULSE 62; O2SAT 95
--- NOTE | 2022-05-23 15:58 | Discharge Summary ---
Date of Service May 23, 2022 Admission HPI Per Admitting Provider Ian Hernandez is an 86 year old male who presents to the ER on advice of his PCP for difficulty urinating for the last 3 days with outpatient labs showing an MIGUEL ANGEL with Cr 9.81. He has a significant history of prostate cancer treated with chemoradiation. He reports generalized illness with decreased balance and weakness for the last week. No nausea, vomiting or chest pain. He has noticed leg swelling getting worse over the last week but no orthopnea, PND or shortness of breath. He denies any dysuria or CVA tenderness although his son reports yesterday he was complaining of lower back pain. In the ER elaine catheter was placed for output of 1.8L. He does report distention before elaine catheter was placed but no abdominal pain. Principal Diagnosis urinary retention Discharge Exam Constitutional: WD/WN, vitals as above Eyes: PERRL, conjunctivae normal, anicteric sclerae ENMT: external ear and nose normal, oropharynx normal Neck: trachea midline, no thyromegaly Respiratory: normal respiratory effort, lungs clear to auscultation Cardiovascular: Rate/Rhythm: regular rate and regular rhythm Extremities: normal capillary refill ;no calf tenderness Gastrointestinal (Abdomen): normal bowel sounds, soft, nontender, no hepatosplenomegaly Musculoskeletal: no cyanosis or clubbing, extremities motor strength 5/5 Skin: no rashes, warm and dry Neurologic: moves all extremities and awake; not confused Motor/Sensory: no tremor and no asterixis Coordination: normal [id number]-[id number] test Psychiatric: A+Ox3, euthymic affect Discharge Data Allergies Allergy/AdvReac Type Severity Reaction Status Date / Time No Known Allergies Allergy Verified 05/30/22 11:15 Consultations 05/20/22 18:31 ED Decision to Admit Stat 05/20/22 21:18 Consult Urology Routine Ordered Studies 05/20/22 17:12 CT abd pelvis wo con Stat Hospital Course (1) Urinary retention: Patient has had large amounts of urine output since admission. Increase tamsulosin to 0.4mg PO BID Ordered senna/docusate for constipation. IMproved with elaine catheter, appreciate input from Urology. creatinine continues to improve. Patient states he is ready for discharge. Had discussion with son who was not agreeable to discharge. I explained how he was doing, and that his creatinine improved from 9 to close to normal. Patient will remain on elaine catheter until Urology followup. I explained to the son, that if you are concerned, I can keep patient one more night to monitor. He said he will think about it, but when I returned to the room 30 minutes later, patient's son took patient home. Instructions to patient: Recommend you keep your catheter until urology follow-up for cystoscopy with Dr. Chen.This will be arranged with Urology. In the short term, will hold off losartan and HCTZ as your kidneys recover. We will decrease your potassium until you are back on the HCTZ. (2) Acute renal failure: Suspect post renal. Cr 9.78 on admission from baseline 1.42 Aim to have equal fluid balance. Monitor I&Os. Likely to have some diuresis once renal function improves will continue IV fluids and monitor his electrolytes reviewed PRP on 05/21 (3) Hypertension: Hold losartan-HCTZ due to MIGUEL ANGEL Continue diltiazem (4) High anion gap metabolic acidosis: Bicarb normal suspect with compensating metabolic alkalosis. Suspect anion gap due to uremia. (5) Hypokalemia: Aim K > 3.0 in setting of MIGUEL ANGEL. No need for replacement at this time. (6) Asthma: Continue fluticasone inhaler (7) Type 2 diabetes mellitus: HbA1C 7.Nov Managed with diet Novolog: --Goal BSG Range: Low 140 mg/dL, High 180 mg/dL --Correction Factor: 45 mg/dL/unit no carb coverage --BSGs ACHS if eating, q6h if npo (8) Pancreatic mass: Consider follow up MRCP as outpatient Total Time Total Time Spent Total Time Spent (In Minutes): 32 Discharge Plan Discharge Items Patient Disposition: Home - Self-Care Reason For Visit: URINE RETENTION, MIGUEL ANGEL Discharge Diagnosis: urine retention Activity: Resume your previous activity Non-emergency contact: Primary Care Provider Call non-emergency contact if: you have any medication questions Follow-up/Referrals: Shahid Gatica MD [Primary Care Provider] - 06/06/22 1:00 pm (APPT. WITH CAREN KAUR) Diet: Carb Consistent or DM2 and Heart Healthy Addtl Attending Provider Instructions: Recommend you keep your catheter until urology follow-up for cystoscopy with Dr. Chen.This will be arranged with Urology. In the short term, will hold off losartan and HCTZ as your kidneys recover. We will decrease your potassium until you are back on the HCTZ. Will recommend folllowup with your PCP. Pending Studies at Discharge: No Stand-Alone Forms: My [facility], Smoking Cessation Medications and DC Order Prescriptions: Continued PreserVision AREDS [id number] myic-rd-atty capsule 1 cap PO DAILY cholecalciferol (vitamin D3) 25 mcg (1,000 unit) capsule 25 mcg PO DAILY fluticasone propionate [Flovent HFA] 220 mcg/actuation HFA aerosol inhaler 2 puff INH BID Qty: 12 11RF tamsulosin 0.4 mg capsule 0.4 mg PO DAILY Qty: 30 5RF Rx Instructions: Take on pill after supper. diltiazem HCl 300 mg tablet extended release 24 hr 300 mg PO DAILY Qty: 90 3RF Systane Complete 0.6 % drops 1 drp ophthalmic (eye) QID PRN (Reason: Dry Eye(S)) albuterol sulfate [Ventolin HFA] 90 mcg/actuation HFA aerosol inhaler 2 puff INH Q4H PRN (Reason: shortness of breath or wheezing) Qty: 18 5RF dorzolamide 2 % drops 1 drp OPL BID brimonidine 0.2 % drops 1 drp OPL BID Changed potassium chloride 20 mEq tablet,ER particles/crystals 40 meq PO Q2D Qty: 30 0RF Discontinued losartan-hydrochlorothiazide 100-25 mg tablet 1 tab PO DAILY Discharge Orders: Discharge Order (Routine); Ordered 05/23/22 Ordered By: Murali Castro/Other Patient Handouts: Managing Type 2 Diabetes, Urinary Catheter Bag Empty Clean, Indwelling Urinary Catheter Dc, Elaine Catheter Male Ch Admission Data Admit Date/Time: 05/20/22 18:44 Attending Provider: Murali Evans Admit Provider: Kade Tidwell Primary Care Provider: Shahid Gatica Other Providers: Kade Tidwell ; Jluis Arroyo Other Interventions: Discharge Summary Assessment (RN) Last Done: 05/23/22 15:22 Coding Level of Care Code 05473 INP/OBS DISCH >30 MIN Diagnoses Urinary retention R33.9 Acute renal failure N17.9 Acute renal failure type: unspecified Hypertension I10 High anion gap metabolic acidosis E87.29 Hypokalemia E87.6 Asthma J45.909 Type 2 diabetes mellitus E11.69 Diabetes mellitus complication status: with other specified complication Diabetes mellitus fpc insulin use: without 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
[2022-05-23] MEDS: cefTRIAXone SODIUM 1,000 MG in DEXTROSE 5% AD-VAN 50 ML IV SCH (17:12)
[2022-05-23 18:44] LABS: BUN Creatinine Ratio 18.4 (10-20); Calcium 8.5 mg/dl (8.6-10.3); Creatinine Clr Calc Pharmacy 33.1 ml/min; Est GFR (African American) 39.2 ml/min; Est GFR (Non-African American) 33.8 ml/min; Potassium 3.6 mmol/L (3.5-5.1)
== END 2022-05-23 18:45 | disposition home or self-care (01) | DRG 683 ==
LOC: ED 16:56 → SUATTDRO 18:44 → 2N 18:44 → 3N 05-22 22:14
DX: Z79.899 Other long term (current) drug therapy; E11.9 Type 2 diabetes mellitus without complications; E87.29 Other acidosis; E87.6 Hypokalemia; I10 Essential (primary) hypertension; K59.00 Constipation, unspecified; N13.9 Obstructive and reflux uropathy, unspecified; Z85.46 Personal history of malignant neoplasm of prostate; R33.8 Other retention of urine; K86.9 Disease of pancreas, unspecified; J45.909 Unspecified asthma, uncomplicated; R33.9 Retention of urine, unspecified; R00.1 Bradycardia, unspecified; N13.30 Unspecified hydronephrosis; R39.14 Feeling of incomplete bladder emptying; Z66 Do not resuscitate; N17.9 Acute kidney failure, unspecified